=== PATIENT | male | born 1995 | race Caucasian/White ===

== ENCOUNTER 2024-08-19 17:08 | Inpatient (IN) | payer BC ==
[~2024-08-19] VITALS: Ht 185.4 cm; Wt 79.4 kg
[2024-08-19 17:59] LABS: RAPID GROUP A STREP negative (NEGATIVE)
[2024-08-19 18:09] LABS: COVID19 (SARS ANTIGEN RAPID) PRESUMPTIVE NEGATIVE (NEGATIVE); INFLUENZA TYPE A Negative For Type A (NEGATIVE); INFLUENZA TYPE B Negative For Type B (NEGATIVE)
[2024-08-19 18:13] LABS: HEMATOCRIT 45.1 % (42-54); MEAN CORPUSCULAR HGB CONC 34.6 g/dL (32.0-36.0); RED BLOOD CELL COUNT(AUTO) 5.57 MIL/uL (4.50-6.20); RED CELL DISTRIBUTION WIDTH 12.1 % (11.0-15.5); WHITE BLOOD COUNT (AUTO) 14.5 K/uL (4.8-10.8)
--- NOTE | 2024-08-19 18:26 | NUR ---
LAC-2.5, ERMD MADE AWARE NO FURTHER ORDERS
[2024-08-19 18:38] LABS: CREATININE 1.7 mg/dL (0.5-1.3); POTASSIUM 3.9 mmol/L (3.5-5.1)
[2024-08-19] MEDS: acetaMINOPHEN 500 MG TABLET PO ONE (18:42)
[2024-08-19 18:55] LABS: ABG BASE EXCESS 1.1 mmol/L (-2.0-3.0); ABG HCO3 23.6 mmol/L (21.0-28.0); ABG OXYGEN SATURATION 92.3 % (94.0-98.0); ABG PCO2 32 mmHg (35-48); ABG PH 7.488 (7.350-7.450); CARBON MONOXIDE 0.6 % (0.5-1.5); DEVICE COMMENT RR; HHb 7.6; PO2, ARTERIAL BG 57.4 mmHg (83.0-108.0); VENT MODE, BG RA (ROOM AIR)
[2024-08-19] MEDS: 0.9%NACL 1000ML 2,382 ML IV ONE (18:55)
[2024-08-19] MEDS: cefTRIAXone 1G VIAL ONE (18:55)
[2024-08-19] MEDS: cefTRIAXone 1G VIAL IVPB ONE (18:55)
[2024-08-19 19:42] VITALS: TEMP 101
[2024-08-19 19:59] VITALS: PULSE 85; RESP 20
[2024-08-19] MEDS: IpraTROPium/alBUTERol SULFATE 3 ML SOLUTION IH ONE (20:04)
[2024-08-19] MEDS: AZITHROMYCIN 500MG+NS 250ML 250 ML IV ONE (20:05)
[2024-08-19] MEDS: Solu-medROL 125MG VIAL IVP ONE (20:05)
--- NOTE | 2024-08-19 20:59 | EKG ---
[facility] Test Date: 2024-08-19 Test Time: 18:51:19 Pat Name: MACKENZIE BARBOSA Department: ED Room: 424 Gender: M Per Diem Physical Therapist: [id number] : 1995 Requested By: FARZAD HERRERA Order Number: [id number] Reading MD: George De Leon Measurements Intervals [place] Rate: 98 P: 51 RI: 131 QRS: 54 QRSD: 95 T: 11 QT: 323 QTc: 413 Interpretive Statements Sinus rhythm No previous ECG available for comparison Electronically Signed On 08-21-2024 12:14:22 INFUSION PHARMACIST by George De Leon Please click the below link to view image of tracing.
--- NOTE | 2024-08-19 21:02 | HMCIMG ---
CHEST 1VW CLINICAL HISTORY: sob COMPARISON: None TECHNIQUE: Single view of the chest was obtained. FINDINGS: There is mild bilateral patchy infiltrates. The cardiac size and mediastinum are unremarkable. The bony structures are within normal limits. IMPRESSION: Bilateral patchy infiltrates.
--- NOTE | 2024-08-19 21:11 | HP ---
History of Present Illness Reason for Visit: sob History of Present Illness Mr. Watkins is a 29-year-old male that was seen and examined today on 08/19/2024. Patient is a good historian and personal health. Patient's Roxanna Watkins is at bedside. Patient reports that he came to the emergency department with a chief complaint of shortness of breath. Onset was today at 8:00 a.m.. Location is to lungs. Duration is constant. Character is described as, " difficulty catching my breath. "Symptoms were not alleviated with laying in bed all day. Symptoms are aggravated with physical activity. Patient reports associated chest pain. Today in the emergency department patient arrived with a temperature of 101.7, heart rate 109, lactic acid elevated, and leukocytosis meeting clinical sepsis criteria. Labs showed WBCs 14.5, creatinine 1.7, lactic acid 2.5, ABG showed PO2 57.4, influenza screen was negative, COVID screen was negative, strep screen was negative, chest x-ray is pending radiology report however my initial impression is there was bilateral infiltrates. Emergency room physician recommended patient be admitted with a diagnosis of acute hypoxemic respiratory failure. Past Medical History ADDITIONAL PAST MEDICAL HISTORY: [Asthma] SOCIAL HISTORY: [Negative for smoking, alcohol use, drug use. Patient lives with his Roxanna Watkins. Patient is typically independent of all his ADLs. Patient denies difficulty pain is bills. Patient has good access to health care through his insurance. Patient is employed full-time as a cowboy.] SURGICAL HISTORY: [Endoscopy, right elbow surgery] Review of Systems General: No Fever, No Chills, No Night Sweats, No Fatigue, No Malaise, No Appetite, No Other HEENT: No Head Aches, No Visual Changes, No Eye Pain, No Ear Pain, No Dysphasia, No Sinus Congestion, No Post Nasal Drip, No Sore Throat, No Other Pulmonary: Dyspnea; No Cough, No Pleuritic Chest Pain, No Other Cardiovascular: No: Chest Pain, Palpitations, Orthopnea, Paroxysmal Noc. Dyspnea, Edema, Lt Headedness, Other Gastrointestinal: No: Nausea, Vomiting, Abdominal Pain, Diarrhea, Constipation, Melena, Hematochezia, Other Genitourinary: No Dysuria, No Frequency, No Incontinence, No Hematuria, No Retention, No Other Musculoskeletal: No: other, neck pain, shoulder pain, arm pain, back pain, hand pain, leg pain, foot pain Skin: No Urticaria, No Rash, No Other Neurological: No: Weakness, Numbness, Incoordination, Change in speech, Confusion, Seizures, Other Allergies: Coded Allergies: No Known Drug Allergies (Unverified Allergy, Unknown, 08/19/24) Exam Vital Signs Vital Signs Date Time Temp Pulse Resp B/P (MAP) Pulse Ox O2 Delivery O2 Flow Rate FiO2 08/19/24 19:59 85 20 08/19/24 19:32 100.9 122/62 95 Nasal Cannula* 3 32 General Appearance: Alert, Oriented X3, Cooperative, moderate distress HEENT: Atraumatic, PERRLA, EOMI, Mucous membr. moist/pink Respiratory: Other (Bilateral rhonchi) Cardiovascular: Normal S1, Normal S2, Other (Tachycardia) Abdominal: Normal bowel sounds, Soft, No tenderness Extremities: No edema Skin: No significant lesion Neuro: Normal speech, Strength at 5/5 X4 ext, Sensation intact, Cranial nerves 3-12 NL Psych/Mental Status: Mental status NL, Mood NL, Thoughts/Content NL Assessment/Plan ASSESSMENT: [ Acute hypoxemic respiratory failure, POA Sepsis, POA Leukocytosis, POA Acute kidney injury, POA Hyperlactatemia, POA Asthma] PLAN: [ Admit patient to medical floor as inpatient status. Place patient on telemetry monitoring. Start BiPAP 10/5, rate 16, 50% FiO2 Keep patient NPO while on BiPAP Advance diet once patient is no longer short of breath. Solu-Medrol 125 mg IV times 1. Continue Solu-Medrol at 40 mg IV every 8 hours. DuoNebs every 6 hours. Fluid resuscitation with 0.9% NS at 30 mL/kilos times 1. Check blood culture, follow up with the results. Reviewed patient's lactic acid, which was elevated. Recheck lactic acid in a.m.. Check procalcitonin, follow up with the results. Empiric antibiotic therapy with Zosyn. Check respiratory culture, follow up with the results. Calculate FENA Check urine sodium, creatinine, osmolality Avoid nephrotoxic agents when possible Renally dose all medications when possible Consider consulting Nephrology service if any worsening renal function or evidence of ATN. Monitor patient's labs. Weight patient daily. Monitor intake and output. GI prophylaxis, famotidine 20 mg IV once daily. DVT prophylaxis, Lovenox 40 mg subcutaneously once daily. ADVANCED CARE PLANNING 1. Which of the following were discussed? Hospice Care - Yes Therapeutic options - Yes Advance Directives - Yes- patient states he does not have any advance directives in place at this time, however his can make decisions for him if he becomes unable. Other discussions - patient wishes to remain a full code at this time 2. Discussed with who? Patient 3. Voluntary nature of this service was explained to the patient? Yes 4. Amount of time spent - ___ 16 minutes ____ 5. Reviewed by Physician? (if this service was performed by NPP) Yes This document was generated in part using voice recognition software, occasional wrong word or sound alike substitutions may have occurred due to the inherent limitations of voice recognition software. Read the chart carefully and recognize using context, where the substitutions have occurred. Although every effort was made to edit the content, supervisor die casting and typing errors may occur ATTESTATION BY PHYSICIAN I have seen and examined the patient. I reviewed the documentation, medical decision making, and treatment plan as noted by the mid-level provider above. I agree with the findings and plan of care. JENNIFER WHITNEY [facility] Aug 19, 2024 21:11
[2024-08-19] MEDS ORDERED: hydrALAZine 20MG/ML VIAL IV PRN (21:30)
[2024-08-19] MEDS ORDERED: acetaMINOPHEN 650 MG SUPPOSITORY RC PRN (21:30)
[2024-08-19] MEDS ORDERED: morPHINE 4 MG SYG IVP PRN (21:30)
[2024-08-19] MEDS ORDERED: ondanSETRON 4MG INJ IV PRN (21:30)
[2024-08-19 21:42] LABS: APPEARANCE,URINE CLEAR (CLEAR); BILIRUBIN,URINE NEGATIVE (NEGATIVE); COLOR,URINE LIGHT-YELLOW (YELLOW); GLUCOSE, URINE (UA) NEGATIVE (NEGATIVE); KETONES,URINE NEGATIVE (NEGATIVE); LEUKOCYTE ESTERASE ,URINE NEGATIVE Leu/uL (NEGATIVE); NITRATE,URINE NEGATIVE (NEGATIVE); OCCULT BLOOD,URINE NEGATIVE (NEGATIVE); PH,URINE 5.5 (5.0-8.0); PROTEIN,URINE 30 mg/dL (NEGATIVE); UROBILINOGEN,URINE 0.2 mg/dL (0.2-1.0)
[2024-08-19 21:45] LABS: CREATININE,URINE RANDOM 210.94 mg/dL (30-135)
[2024-08-19 21:51] LABS: ADD UA MICROSCOPIC YES
[2024-08-19 21:53] LABS: MUCUS,URINE RARE LPF (None Seen); RBC,URINE 0-1 /HPF (0-1); WBC,URINE 0-1 /HPF (0-1)
[2024-08-19 22:20] VITALS: PULSE 82; RESP 32; O2SAT 98
[2024-08-19] MEDS: ZOSYN 3.375GM +NS 50ML IV SCH (23:28)
[2024-08-19] MEDS: LACTATED RINGERS 1000ML 1,000 ML IV SCH (23:28)
[2024-08-19] MEDS: IpraTROPium/alBUTERol SULFATE 3 ML SOLUTION IH SCH (23:30)
--- NOTE | 2024-08-19 23:43 | ERN ---
ED Note History of Present Illness Stated Complaint: ACUTE HYPOXEMIC RESPIRATORY FAILURE, SEPSIS, LEUKO Chief Complaint: Generalized Body Aches Time Seen by MD: 18:08 Time Seen by Midlevel: 18:08 Dictation: The patient is a 29-year-old male with a history of asthma who presents to the emergency department with complaints fever, shortness of breath, fatigue, generalized body aches, productive cough with yellow phlegm onset two days ago. Allergies: Coded Allergies: No Known Drug Allergies (Unverified Allergy, Unknown, 08/19/24) Past Medical History Past Medical History: Asthma, GERD Surgical History: Tonsillectomy Surgical History Other: RT ARM, EGD Review of System Dictation Constitutional: Negative for ,chills, and weight loss positive for fever, body aches Eyes: Negative for injury, pain,redness, and discharge ENT: Negative for injury,pain or swelling Cardiovascular: Negative for chest pain, palpitations, and edema Respiratory: Positive for shortness of breath, wheezing, cough, Abdomen/GI: Negative for abdominal pain, nausea, vomiting, diarrhea, and constipation Back: Negative for injury and pain : Negative for injury, bleeding and discharge MS/Extremity: Negative for injury and deformity Skin: Negative for rash, and discoloration Neuro: Negative for headache numbness, tingling, and seizure positive for weakness Psych: Negative for suicide ideation, homicidal ideation, and hallucinations Initial Vital Sign VS Vital Signs Date Time Temp Pulse Resp B/P (MAP) Pulse Ox O2 Delivery O2 Flow Rate FiO2 08/19/24 17:46 101.7 109 20 182/72 93 Room Air* 0 21 Physical Exam Dictation Vital Signs reviewed General Appearance: Alert, oriented x 3, mild distress, well developed, carissa shed. Head and Face: non-traumatic. Eyes: PERRL, pink conjunctivas, eyelid no trauma, anterior chamber with arcus senilis. Ears: Pinnas intact and no signs of trauma or erythema ear canals clear and no discharge TM no erythema Nose: No discharge, no bleeding. Oropharynx: Mouth normal, tongue pink. pharynx clear,no erythema, tonsils no exudates, no abscesses noted, mucous membrane moist Neck: Supple, non-tender, no thyromegaly, no masses, no JVD, no bruits Breast:Deferred Chest:No tenderness, no crepitus, no paradoxical movement, no retractions Lungs:Clear, well-ventilated, symmetric, no rales, + wheezing, no rhonchi, no stridor, good breath sounds bilaterally Heart: Regular rate, regular rhythm, no murmur, no gallops Vascular: no peripheral edema, Abdomen: Soft, positive bowel sounds, nondistended, no guarding, nontender, no rebound, no masses no hepatomegaly, no splenomegaly, no Chávez's sign, no hernias. Rectal: Deferred Genital: Deferred Neurological: Normal speech, motor function intact, sensory function intact Musculoskeletal: Neck nontender, full range of motion, back nontender, full range of motion, Extremities: nontender, full range of motion Skin: Color pink, dry, no turgor, no rash, no lacerations, no abrasions, no contusions. Lymphatic: Deferred Results (Laboratory/Radiology) Laboratory/Radiology Laboratory Tests Test 08/19/24 17:40 08/19/24 18:07 08/19/24 18:53 08/19/24 21:24 Influenza Type A Antigen Negative For Type A Influenza Type B Antigen Negative For Type B SARS-CoV-2 Antigen (Rapid) PRESUMPTIVE NEGATIVE Group A Streptococcus Rapid negative (NEGATIVE) White Blood Count 14.5 K/uL (4.8-10.8) H Red Blood Count 5.57 MIL/uL (4.50-6.20) Hemoglobin 15.6 g/dL (14.0-18.0) Hematocrit 45.1 % (42-54) Mean Corpuscular Volume 81.0 fL (79-99) Mean Corpuscular Hemoglobin 28.0 pg (27.0-33.0) Mean Corpuscular Hemoglobin Concent 34.6 g/dL (32.0-36.0) Red Cell Distribution Width 12.1 % (11.0-15.5) Platelet Count 195 K/uL (130-400) Mean Platelet Volume 10.4 fL (7.5-10.5) Nucleated Red Blood Cells 0.0 % (0.0-0.19) Sodium Level 137 mmol/L (136-145) Potassium Level 3.9 mmol/L (3.5-5.1) Chloride Level 97 mmol/L (101-111) L Carbon Dioxide Level 27 mmol/L (21-32) Blood Urea Nitrogen 18 mg/dL (7-18) Creatinine 1.7 mg/dL (0.5-1.3) H Glomerular Filtration Rate Calc 55 mL/min (>90) Random Glucose 124 mg/dL (70-105) H Lactic Acid Level 2.5 mmol/L (0.8-2.5) Total Calcium 9.1 mg/dL (8.5-10.1) Total Creatine Kinase 114 U/L (21-232) Troponin I High Sensitivity 9 ng/L (4-75) B-Type Natriuretic Peptide 7 pg/mL (0-100) Procalcitonin 0.36 ng/mL (0.05-0.5) Blood Gas Specimen Type Arterial Arterial Blood pH 7.488 (7.350-7.450) Arterial Blood Partial Pressure CO2 32 mmHg (35-48) L Arterial Blood Partial Pressure O2 57.4 mmHg (83.0-108.0) L Arterial Blood HCO3 23.6 mmol/L (21.0-28.0) Arterial Blood Oxygen Saturation 92.3 % (94.0-98.0) L Arterial Blood Base Excess 1.1 mmol/L (-2.0-3.0) Hemoglobin (Blood Gas) 15.3 g/dL (13.5-17.5) Sodium (Blood Gas) 133 MMOL/L (136-145) L Bedside Potassium (Blood Gas) 3.8 MMOL/L (3.4-4.5) Bedside Chloride (Blood Gas) 97 MMOL/L (98-107) L Bedside Glucose (Blood Gas) 119 MG/DL (65-95) H Bedside Ionized Calcium (Blood Gas) 1.11 MMOL/L (1.15-1.33) L Bedside Lactic Acid (Blood Gas) 1.86 MMOL/L (0.36-0.75) H Blood Gas Temperature 37.0 CELSIUS (35.5-37.0) Blood Gas Vent Mode RA (ROOM AIR) FiO2 21.0 % Blood Gas Specimen Comment RR Urine Color LIGHT-YELLOW (YELLOW) Urine Appearance CLEAR (CLEAR) Urine pH 5.5 (5.0-8.0) Urine Specific [place] 1.025 (1.001-1.031) Urine Protein 30 mg/dL (NEGATIVE) H Urine Glucose (UA) NEGATIVE mg/dL (NEGATIVE) Urine Ketones NEGATIVE mg/dL (NEGATIVE) Urine Occult Blood NEGATIVE (NEGATIVE) Urine Nitrate NEGATIVE (NEGATIVE) Urine Bilirubin NEGATIVE mg/dL (NEGATIVE) Urine Urobilinogen 0.2 mg/dL (0.2-1.0) Urine Leukocyte Esterase NEGATIVE Sveta/uL Urine RBC 0-1 /HPF (0-1) Urine WBC 0-1 /HPF (0-1) Urine Bacteria None /HPF (None Seen) Urine Random Creatinine 210.94 mg/dL (30-135) H Urine Random Sodium 65 mmol/l (40-220) Test 08/19/24 21:40 Lactic Acid Level 2.0 mmol/L (0.8-2.5) SERVICE 1840 REASON: sob ORDERING PHYSICIAN: FARZAD HERRERA PROCEDURE: CXR1VW - CHEST 1VW CHEST 1VW CLINICAL HISTORY: sob COMPARISON: None TECHNIQUE: Single view of the chest was obtained. FINDINGS: There is mild bilateral patchy infiltrates. The cardiac size and mediastinum are unremarkable. The bony structures are within normal limits. IMPRESSION: Bilateral patchy infiltrates. Labs Reviewed?: Yes EKG: (+) rhythm EKG Comment: EKG 08/19/2024 1851 ventricular rate 98, regular rate and rhythm, normal sinus rhythm, no STEMI ED Course ED Course Orders Procedure Category Date Status Time Covid19 (Sars Antigen LAB 08/19/24 Complete Rapid) 17:34 Influenza Type A & B, LAB 08/19/24 Complete Rapid 17:34 Rapid (Group A Strep) LAB 08/19/24 Complete 17:34 Cbc Without LAB 08/19/24 Complete Differential 18:05 Basic Metabolic Panel LAB 08/19/24 Complete 18:05 Lactic Acid LAB 08/19/24 Complete 18:05 Acetaminophen 500mg PHA 08/19/24 Complete Tab (Tylenol 500mg T 19:00 12 Lead Ekg Tracing- EKG 08/19/24 Complete Technical 18:40 Blood Cult CLAUDIA 08/19/24 In Process 18:40 Chest 1vw RAD 08/19/24 Resulted 18:40 Azithromycin 500mg+Ns PHA 08/19/24 Complete 250ml (Azithromyci 19:00 0.9%Nacl 1000ml (Ns PHA 08/19/24 Complete 1000ml) 19:00 Creatine Kinase, Total LAB 08/19/24 Complete 18:40 Troponin I High LAB 08/19/24 Complete Sensitivity 18:40 B-Type Natriuretic LAB 08/19/24 Complete Peptide 18:40 Procalcitonin LAB 08/19/24 Complete 18:40 Ceftriaxone 1g Vial PHA 08/19/24 Complete (Rocephine 1g Inj) 19:00 Arterial Blood Gas RT 08/19/24 Transmitted 18:42 Ceftriaxone 1g Vial PHA 08/19/24 Complete (Rocephine 1g Inj) 18:46 Arterial Blood Gas LAB 08/19/24 Complete Arterial + 18:53 Methylprednisolone PHA 08/19/24 Complete Succ 125mg (Solu-Medr 19:30 Ipratropium/Albuterol PHA 08/19/24 Complete Neb (Duoneb) 19:30 Admit Orders ADM 08/19/24 Transmitted 20:57 Edm Admit Bridge Order ADM 08/19/24 Transmitted 20:57 Lactated Ringers PHA 08/19/24 In Process 1000ml (Lactated 21:30 Zosyn 3.375gm+Ns 50ml PHA 08/19/24 In Process (Zosyn 3.375gm+Ns 21:30 Famotidine 20mg Vial PHA 08/20/24 In Process (Pepcid 20mg Vial) 09:00 Ipratropium/Albuterol PHA 08/20/24 In Process Neb (Duoneb) 00:00 Enoxaparin Sodium 40 PHA 08/20/24 In Process Mg/0.4 Ml (Lovenox) 09:00 Hydralazine 20mg Inj PHA 08/19/24 In Process (Apresoline 20mg In 21:30 Morphine 4mg Syg PHA 08/19/24 In Process (Morphine 4mg Syg) 21:30 Ondansetron 4mg Inj PHA 08/19/24 In Process (Zofran 4mg Inj) 21:30 Acetaminophen 650mg PHA 08/19/24 In Process Supp (Tylenol 650mg 21:30 Methylprednisolone PHA 08/20/24 In Process Succ 40mg (Solu-Medro 04:00 Bipap Settings RT 08/19/24 Transmitted 21:05 Respiratory Cult CLAUDIA 08/19/24 Logged W/Gram Stain 21:05 Urine Creatinine LAB 08/19/24 Complete Random 21:05 Urinalysis Profile LAB 08/19/24 Complete 21:05 Urine Sodium,Random LAB 08/19/24 Complete 21:05 Osmolality Urine LAB 08/19/24 In Process 21:05 Keep Patient Npo CPOE 08/19/24 Transmitted 21:05 Admit Orders ADM 08/19/24 Transmitted 21:05 Activity: Ad Vibha CPOE 08/19/24 Transmitted 21:05 Condition: CPOE 08/19/24 Transmitted 21:05 Nurse To Enter Home CPOE 08/19/24 Transmitted Medication 21:05 Oxygen By Nc/Pulse Ox CPOE 08/19/24 Transmitted 21:05 Telemetry Monitoring CPOE 08/19/24 Transmitted 21:05 Vital Signs(Adult CPOE 08/19/24 Transmitted Hospitalist) 21:05 Lactic Acid (Removed) LAB 08/19/24 Complete 21:27 Basic Metabolic Panel LAB 08/20/24 Verified 04:00 Magnesium LAB 08/20/24 Verified 04:00 Phosphorus LAB 08/20/24 Verified 04:00 Lactic Acid LAB 08/20/24 Verified 04:00 Cbc With Differential LAB 08/20/24 Verified 04:00 Current Medications Medications (Trade) Dose Ordered Sig/Anna Route PRN Reason Start Time Stop Time Status Last Admin Dose Admin Acetaminophen (TYLenol 500MG TAB) 1,000 mg ONCE ONCE PO 08/19/24 19:00 08/19/24 19:01 DC 08/19/24 18:42 Albuterol (DUOneb) 1 UDVIAL ONCE ONCE IH 08/19/24 19:30 08/19/24 19:31 DC 08/19/24 20:04 Azithromycin 250 ml @ 125 mls/hr ONCE ONCE IV 08/19/24 19:00 08/19/24 20:59 DC 08/19/24 20:05 Ceftriaxone Sodium (ROCEphine 1G INJ) 1 gm ONCE ONCE IVPB 08/19/24 19:00 08/19/24 19:01 DC 08/19/24 18:55 Ceftriaxone Sodium (ROCEphine 1G INJ) 1 gm STK-MED ONCE .ROUTE 08/19/24 18:46 08/19/24 18:46 DC Methylprednisolone Sodium Succinate (Solu-medROL 125MG) 125 mg ONCE ONCE IVP 08/19/24 19:30 08/19/24 19:31 DC 08/19/24 20:05 Sodium Chloride 2,382 ml @ 794 mls/hr ONCE ONCE IV 08/19/24 19:00 08/19/24 21:59 DC 08/19/24 18:55 Vital Signs Date Time Temp Pulse Resp B/P (MAP) Pulse Ox O2 Delivery O2 Flow Rate FiO2 08/19/24 22:36 85 20 124/60 98 Bi-PAP+ 50 08/19/24 22:20 82 32 50 08/19/24 19:59 85 20 08/19/24 19:32 100.9 94 18 122/62 95 Nasal Cannula* 3 32 08/19/24 18:56 104 24 133/72 94 Room Air* 0 21 08/19/24 18:42 101.7 08/19/24 17:46 101.7 109 22 182/72 93 0 08/19/24 17:46 101.7 109 20 182/72 93 Room Air* 0 21 Medical Decision Making MDM The patient is a 29-year-old male with a history of asthma who presents to the emergency department with complaints fever, shortness of breath, fatigue, generalized body aches, productive cough with yellow phlegm onset two days ago. CBC showed mild leukocytosis, no anemia, chemistry showed GFR of 55, no electrolyte imbalance, lactic acid of 2.3, serology negative. Patient Saturday 92-93% on room air. ABG showed some hypoxemia. Patient placed on O2. chest x- ray with infiltrate. Patient will be admitted further management Differential diagnosis: Pneumonia, pneumothorax, sepsis, electrolyte imbalance, upper respiratory infection Comorbidities: Asthma Tests considered and not ordered secondary to shared decision making include: none Previous outside records reviewed: none Risk of complication and/or morbidity or mortality of patient management: The patient meets criteria for admission. Need for emergency major/minor surgery: No There are no social concerns with this patient. I independently interpreted the tests I ordered (labs, urinalysis, etc.). I discussed the case with the hospitalist for admission. Glynn CRESPO who accepts ad mission. I discussed the case with the following specialists: none. Historian: pateint. I independently interpreted imaging studies and EKGs that I ordered (US, CT, XR, EKG, etc.). External chart review: none. Medical management and examination interpretation discussions were had by me with other qualified healthcare professionals as indicated for the patient's care. DX & DISP Disposition: Inpatient Decision to Admit Date: Aug 19, 2024 Decision to Admit Time: 20:57 Departure Impression: Primary Impression: Pneumonia Additional Impressions: Respiratory distress, Hypoxemia, Acute kidney injury, Leukocytosis, Elevated lactic acid level Condition: Stable Referrals: RAUL REY MD (PCP) I have reviewed the case, and I agree with, Diagnosis and Plan FARZAD HERRERA Aug 19, 2024 23:43
[2024-08-19 23:55] VITALS: PULSE 92; RESP 23
[2024-08-20] VITALS (15 sets, daily range): BP systolic 109–128; BP diastolic 55–72; PULSE 57–90; RESP 18–24; TEMP 97.3–98.7; O2SAT 94–98
[2024-08-20] MEDS: Solu-medROL 40MG VIAL IVP SCH (05:35)
[2024-08-20 07:34] LABS: BASOPHILS # (AUTO) 0.02 K/uL (0.00-0.20); BASOPHILS % (AUTO) 0.1 % (0.0-5.0); HEMATOCRIT 39.6 % (42-54); LYMPHOCYTES # (AUTO) 1.7 K/uL (1.0-4.8); LYMPHOCYTES % (AUTO) 11.9 % (21.0-51.0); MEAN CORPUSCULAR HEMOGLOBIN 28.3 pg (27.0-33.0); MEAN CORPUSCULAR HGB CONC 34.3 g/dL (32.0-36.0); MEAN CORPUSCULAR VOLUME 82.5 fL (79-99); MONOCYTES # (AUTO) 0.5 K/uL (0.1-1.0); MONOCYTES % (AUTO) 3.4 % (3.0-13.0); NEUTROPHILS # (AUTO) 12.3 K/uL (1.8-7.7); NEUTROPHILS % (AUTO) 83.9 % (40.0-77.0); PLATELET COUNT (AUTO) 174 K/uL (130-400); RED CELL DISTRIBUTION WIDTH 12.2 % (11.0-15.5); WHITE BLOOD COUNT (AUTO) 14.7 K/uL (4.8-10.8)
[2024-08-20 07:56] LABS: CREATININE 1.2 mg/dL (0.5-1.3); MAGNESIUM 1.9 mg/dL (1.80-2.40); PHOSPHORUS 2.6 mg/dL (2.5-4.9); POTASSIUM 3.8 mmol/L (3.5-5.1)
[2024-08-20] MEDS: FAMOTIDINE 20MG VIAL IV SCH (09:37)
[2024-08-20] MEDS: ENOXAPARIN SODIUM 40 MG/0.4 ML SYRINGE SQ SCH (09:38)
--- NOTE | 2024-08-20 10:32 | NUR ---
DCP Pt awake, alert, oriented X3 lives with spouse. Pt has a wheelchair from past broken extremity and was going to [employer]. Anticipates discharge is for home. Addendum: 08/20/24 at 1042 by ERIKA WALLACE RN CM Amended: Links added.
--- NOTE | 2024-08-20 12:45 | NUR ---
PATIENT INTO ROOM 424. PATIENT A&O X4. PATIENT DENIES PAIN AT THIS TIME. PATIENT ON NC @ 3L. PATIENT CONNECTED TO FLUIDS AND TELE MONITOR. BED AT LOWEST POSITION AND LOCKED, CALL LIGHT WITHIN REACH.
--- NOTE | 2024-08-20 13:29 | PN ---
[facility] PROGRESS NOTE Date of Service: Aug 20, 2024 Time of Service: 13:27 SUBJECTIVE: 08/20/24 Patient is seen and examined, awake, comfortably bed, admits cough productive off yellow phlegm. BP 114/65, afebrile, saturating 94% 2 L via nasal cannula, CBC with a hemoglobin 13.6, hematocrit 39.6, white blood cell count of 14.7, patient on Zosyn IV pharmacy to dose. Chest x-ray showing bilateral patchy infiltrates. Serology test negative for influenza A and B, SARS antigen and group A strep. We will order CT chest without contrast. We will request Pulmonary consultation. Discussed with the patient, all questions answered. REVIEW OF SYSTEMS CONSTITUTIONAL: Denies fevers, chills, or night sweats. No unintentional weight loss reported. NEUROLOGICAL: Denies headache, amaurosis fugax, motor weakness, sensory deficit, vertigo/spinning sensation, gait abnormalities, or tremors. ENT: No hearing loss, otalgia, otorrhea, rhinitis, rhinorrhea, hoarseness, or sore throat. CARDIOVASCULAR: Denies any exertional angina, dyspnea on exertion, orthopnea, paroxysmal nocturnal dyspnea, palpitations, life-threatening arrhythmias, claudication. PULMONARY: Denies any shortness of breath, cough, phlegm/sputum, hemoptysis, pleuritic chest pain. SLEEP: Denies morning headaches, daytime somnolence or napping. Denies difficulty falling asleep, staying asleep, waking from sleep. Denies knowledge of snoring. GASTROINTESTINAL: Denies any type of dysphagia to either liquids or solids. Denies nausea, vomiting, pyrosis, early satiety, abdominal pain, diarrhea, constipation, or changes in stool consistency or caliber. Denies coffee-ground emesis, hematemesis, hematochezia, or melanotic stools. GENITOURINARY: Denies frequency, urgency, nocturia, hematuria or incontinence (Storage/Irritative symptoms.) Low urinary stream, straining to void, urinary intermittency or hesitancy, splitting of the voiding stream, terminal dribbling. ENDOCRINOLOGIC: Denies polyuria, polydipsia, polyphagia or heat/cold intolerances. HEMATOLOGIC: Denies thrombophilia/previous clots, or coagulopathy/bleeding disorders. ONCOLOGIC: Denies personal history of malignancy. DERMATOLOGIC: Denies rashes or pruritus. PSYCHIATRIC: Denies any suicidal or homicidal ideation. Denies hallucinations. PHYSICAL EXAM GENERAL APPEARANCE: The patient is awake, alert, and oriented, in no acute cardiopulmonary distress. NEUROLOGICAL: Cranial nerves II-XII grossly intact. Motor is 5/5 in bilateral upper and lower extremities proximal to distal. No sensory deficits. HEENT: Face is symmetric. Pupils are equal and reactive. Extraocular movements are intact. NECK: Supple. No JVD. No thyromegaly. No submental, submandibular, pre- /postauricular, occipital or supraclavicular lymphadenopathy. CHEST: Normal chest expansion. No Telemetry. LUNGS: Absence of any rales, rhonchi or any wheezing. CARDIOVASCULAR: Regular. S1 and S2 normal. No appreciable rubs, murmurs or gallops. ABDOMEN: Soft, nontender, and nondistended. There is no rebound, voluntary guarding, or rigidity. : Deferred. No Busby. EXTREMITIES: Non-edematous and not cyanotic. No clubbing. Good capillary refill. SKIN: No skin breakdown. Vital Signs (last 8hr) Date Time Temp Pulse Resp B/P (MAP) Pulse Ox O2 Delivery O2 Flow Rate FiO2 08/20/24 12:51 97.3 58 20 114/65 94 Nasal Cannula 2.0 24 08/20/24 12:00 98.8 78 20 128/66 96 Nasal Cannula 3.0 50 08/20/24 11:40 61 24 08/20/24 11:33 61 24 N/Cannula Low lpm 3.0 08/20/24 11:32 61 24 08/20/24 08:00 98.2 70 20 117/72 98 Nasal Cannula 3.0 50 08/20/24 07:36 Room Air* 0 21 08/20/24 07:13 63 24 N/Cannula Low lpm 3.0 08/20/24 07:13 63 24 08/20/24 05:45 97.7 67 20 117/68 96 Bi-PAP+ 50 LABS: Laboratory: Test 08/20/24 11:10 08/20/24 07:29 08/19/24 21:24 08/19/24 18:53 Range/Units Lactic Acid Level 3.3 H 0.8-2.5 mmol/L White Blood Count 14.7 H 4.8-10.8 K/uL Red Blood Count 4.80 4.50-6.20 MIL/uL Hemoglobin 13.6 L 14.0-18.0 g/dL Hematocrit 39.6 L 42-54 % Mean Corpuscular Volume 82.5 79-99 fL Mean Corpuscular Hemoglobin 28.3 27.0-33.0 pg Mean Corpuscular Hemoglobin Concent 34.3 32.0-36.0 g/dL Red Cell Distribution Width 12.2 11.0-15.5 % Platelet Count 174 130-400 K/uL Mean Platelet Volume 10.7 H 7.5-10.5 fL Immature Granulocyte % (Auto) 0.7 0-1 % Neutrophils (%) (Auto) 83.9 H 40.0-77.0 % Lymphocytes (%) (Auto) 11.9 L 21.0-51.0 % Monocytes (%) (Auto) 3.4 3.0-13.0 % Eosinophils (%) (Auto) 0.0 0.0-8.0 % Basophils (%) (Auto) 0.1 0.0-5.0 % Neutrophils # (Auto) 12.3 H 1.8-7.7 K/uL Lymphocytes # (Auto) 1.7 1.0-4.8 K/uL Monocytes # (Auto) 0.5 0.1-1.0 K/uL Eosinophils # (Auto) 0.00 0.00-0.70 K/uL Basophils # (Auto) 0.02 0.00-0.20 K/uL Absolute Immature Granulocyte (auto 0.10 0-1 K/uL Nucleated Red Blood Cells 0.0 0.0-0.19 % Sodium Level 141 136-145 mmol/L Potassium Level 3.8 3.5-5.1 mmol/L Chloride Level 105 101-111 mmol/L Carbon Dioxide Level 27 21-32 mmol/L Blood Urea Nitrogen 16 7-18 mg/dL Creatinine 1.2 0.5-1.3 mg/dL Glomerular Filtration Rate Calc 83 >90 mL/min Random Glucose 174 H 70-105 mg/dL Total Calcium 8.4 L 8.5-10.1 mg/dL Phosphorus Level 2.6 2.5-4.9 mg/dL Magnesium Level 1.90 1.80-2.40 mg/dL Urine Color LIGHT-YELLOW YELLOW Urine Appearance CLEAR CLEAR Urine pH 5.5 5.0-8.0 Urine Specific [place] 1.025 1.001-1.031 Urine Protein 30 H NEGATIVE mg/dL Urine Glucose (UA) NEGATIVE NEGATIVE mg/dL Urine Ketones NEGATIVE NEGATIVE mg/dL Urine Occult Blood NEGATIVE NEGATIVE Urine Nitrate NEGATIVE NEGATIVE Urine Bilirubin NEGATIVE NEGATIVE mg/dL Urine Urobilinogen 0.2 0.2-1.0 mg/dL Urine Leukocyte Esterase NEGATIVE NEGATIVE Sveta/uL Urine RBC 0-1 0-1 /HPF Urine WBC 0-1 0-1 /HPF Urine Bacteria None None Seen /HPF Urine Osmolality 798 50-1200 mOsm/kg Urine Random Creatinine 210.94 H 30-135 mg/dL Urine Random Sodium 65 40-220 mmol/l Blood Gas Specimen Type Arterial Arterial Blood pH 7.488 H 7.350-7.450 Arterial Blood Partial Pressure CO2 32 L 35-48 mmHg Arterial Blood Partial Pressure O2 57.4 L 83.0-108.0 mmHg Arterial Blood HCO3 23.6 21.0-28.0 mmol/L Arterial Blood Oxygen Saturation 92.3 L 94.0-98.0 % Arterial Blood Base Excess 1.1 -2.0-3.0 mmol/L Hemoglobin (Blood Gas) 15.3 13.5-17.5 g/dL Sodium (Blood Gas) 133 L 136-145 MMOL/L Bedside Potassium (Blood Gas) 3.8 3.4-4.5 MMOL/L Bedside Chloride (Blood Gas) 97 L 98-107 MMOL/L Bedside Glucose (Blood Gas) 119 H 65-95 MG/DL Bedside Ionized Calcium (Blood Gas) 1.11 L 1.15-1.33 MMOL/L Bedside Lactic Acid (Blood Gas) 1.86 H 0.36-0.75 MMOL/L Blood Gas Temperature 37.0 35.5-37.0 CELSIUS Blood Gas Vent Mode RA ROOM AIR FiO2 21.0 % Blood Gas Specimen Comment RR Test 08/19/24 18:07 08/19/24 17:40 Range/Units Total Creatine Kinase 114 21-232 U/L Troponin I High Sensitivity 9 4-75 ng/L B-Type Natriuretic Peptide 7 0-100 pg/mL Procalcitonin 0.36 0.05-0.5 ng/mL Influenza Type A Antigen Negative For Type A NEGATIVE Influenza Type B Antigen Negative For Type B NEGATIVE SARS-CoV-2 Antigen (Rapid) PRESUMPTIVE NEGATIVE NEGATIVE Group A Streptococcus Rapid negative NEGATIVE Current Medications Medications (Trade) Dose Ordered Sig/Anna Route PRN Reason Start Time Stop Time Status Last Admin Dose Admin Acetaminophen (TYLenol 650MG SUPPOSITORY) 650 mg Q6H PRN RC MILD PAIN (1-3) 08/19/24 21:30 09/18/24 21:29 Albuterol (DUOneb) 1 UDVIAL [id number] IH 08/20/24 00:00 09/19/24 00:00 08/20/24 11:30 1 UDVIAL Enoxaparin Sodium (Lovenox) 40 mg DAILY SQ 08/20/24 09:00 09/19/24 08:59 08/20/24 09:38 40 MG Famotidine (Pepcid 20mg Vial) 20 mg DAILY IV 08/20/24 09:00 09/19/24 08:59 08/20/24 09:37 20 MG Hydralazine HCl (APRESOLine 20MG INJ) 10 mg Q6H PRN IV For:SBP above 160;DBP above 90 08/19/24 21:30 09/18/24 21:29 Lactated Ringer's 1,000 ml @ 75 mls/hr [id number] IV 08/19/24 21:30 09/18/24 21:29 08/19/24 23:28 75 MLS/HR Methylprednisolone Sodium Succinate (Solu-medROL 40MG) 40 mg Q8H IVP 08/20/24 04:00 09/19/24 03:59 08/20/24 05:35 40 MG Morphine Sulfate (morPHINE 4MG SYG) 4 mg Q4H PRN IVP SEVERE PAIN (7-10) 08/19/24 21:30 08/26/24 21:29 Ondansetron HCl (zoFRAN 4MG INJ) 4 mg Q6H PRN IV NAUSEA/VOMITING 08/19/24 21:30 09/18/24 21:29 Piperacillin Sod/ Tazobactam Sod (Zosyn 3.375gm+NS 50ml) 3.375 gm Q8H IV 08/19/24 21:30 08/29/24 21:29 08/20/24 05:36 3.375 GM DIAGNOSTICS / RADIOLOGY: [ ] ASSESSMENT: Acute hypoxemic respiratory failure, POA Sepsis, POA Leukocytosis, POA Acute kidney injury, POA Hyperlactatemia, POA Asthma PLAN: Admit patient to medical floor as inpatient status. Place patient on telemetry monitoring. Continue BiPAP 10/5, rate 16, 50% FiO2 Keep patient NPO while on BiPAP Advance diet once patient is no longer short of breath. Continue Solu-Medrol at 40 mg IV every 8 hours. DuoNebs every 6 hours. Fluid resuscitation with 0.9% NS at 30 mL/kilos times 1. Check blood culture, follow up with the results. Reviewed patient's lactic acid, which was elevated. Recheck lactic acid in a.m.. Check procalcitonin, follow up with the results. Empiric antibiotic therapy with Zosyn. Check respiratory culture, follow up with the results. Calculate FENA Check urine sodium, creatinine, osmolality Avoid nephrotoxic agents when possible Renally dose all medications when possible Consider consulting Nephrology service if any worsening renal function or evidence of ATN. We will request Pulmonary consultation Monitor patient's labs. Weight patient daily. Monitor intake and output. GI prophylaxis, famotidine 20 mg IV once daily. DVT prophylaxis, Lovenox 40 mg subcutaneously once daily. BELL SMITH MD Aug 20, 2024 13:29
--- NOTE | 2024-08-20 13:40 | NUR ---
[facility] CONSULT SPOKE WITH BIBIANA WEAVER, WHO WORKS [employer] DR QUIJANO ABOUT NEW CONSULT FOR PNEUMONIA, SATED HE IS AWARE OF CONSULT. PLAN OF CARE ON GOING.
--- NOTE | 2024-08-20 18:22 | HMCIMG ---
CT CHEST W/O CONTRAST REASON: pneumonia COMPARISON: None. TECHNIQUE: Multiple sequential axial images of the chest were obtained from the thoracic inlet through the upper pole of the kidneys without intravenous contrast administration. FINDINGS: There is acute focal infiltrate in the base of the right upper lobe, consistent with pneumonia. There is patchy infiltrate in the base of the left upper lobe, less pronounced. There is atelectasis in the left lung base. Lungs are otherwise clear. Heart size is normal. There is no vascular congestion or pleural effusion. Hilar and mediastinal structures appear unremarkable. There is severe hepatic steatosis. Upper abdominal structures appear otherwise unremarkable. IMPRESSION: Multifocal pneumonia, in the base of the right upper lobe and less pronounced infiltrate in the base of the left upper lobe. 2. Otherwise unremarkable CT chest. 3. Severe hepatic steatosis. CT was performed with one or more following dose reduction techniques: automated exposure control, adjustment of the mA and kv according to patient's size, or use of a iterative reconstruction technique.
[2024-08-20 19:30] LABS: AMPHET/METH SCREEN,URINE NEGATIVE (NEGATIVE); BARBITURATE SCREEN, URINE NEGATIVE (NEGATIVE); BENZODIAZEPINES SCREEN,URINE NEGATIVE (NEGATIVE); CANNABINOID SCREEN,URINE NEGATIVE (NEGATIVE); COCAINE SCREEN,URINE NEGATIVE (NEGATIVE); OPIATE SCREEN,URINE NEGATIVE (NEGATIVE); PHENCYCLIDINE SCREEN,URINE NEGATIVE (NEGATIVE)
--- NOTE | 2024-08-20 23:16 | CONS ---
[facility] CONSULTATION NOTE Date Patient Seen: Aug 20, 2024 Time of Visit: 23:12 Supervising Physician: Dr. Mane Meza Reason for Consultation: Pneumonia PROBLEM LIST: Acute hypoxemic respiratory failure, POA Bilateral pneumonia Sepsis, POA Leukocytosis, POA Acute kidney injury, POA Hyperlactatemia, POA Asthma HPI: Patient is a 29-year-old who was admitted for sepsis criteria and acute hypoxemic respiratory failure. Patient was found to have bilateral patchy i nfiltrates consistent with pneumonia. Pulmonology was consulted for this. At the time of evaluation the patient is on 3 L nasal cannula, he appears comfortable and in no acute distress. There are mild wheezes on auscultation, patient denies any acute distress at this time. Patient was on Zosyn q.8 hours, as well as albuterol q.6 hours PRN. He is also on 40 mg methylprednisolone q.8 hours. Current recommendations are to continue with the current treatment plan, we will reassess ABGs in the morning and evaluate the patient to determine if further interventions are necessary. Plan Continue antibiotic Continue steroids Continue nebulizers Morning ABGs Continue supplemental O2 Continue DVT prophylaxis PAST MEDICAL HX: see above PAST SURGICAL HX: noncontributory SOCIAL HISTORY: No tobacco, ETOH, or illicit drug use Coded Allergies: No Known Drug Allergies (Unverified Allergy, Unknown, 08/19/24) REVIEW OF SYSTEMS: 12 point ROS reviewed with patient. Pertinent positives mentioned above. Otherwise negative. PHYSICAL EXAM: GENERAL: alert, weak, awake oriented x 3 HEENT: EOMI, Sclera non icteric, moist mucosa NECK: Supple, no JVD, trachea midline LUNGS: Clear breath sounds bilaterally. No wheezes HEART: Regular rate and rhythm. Normal S1 and S2, without murmurs ABD: Abdomen soft, nontender. Bowel sounds present EXT: No clubbing cyanosis or edema NEURO: Alert and oriented to person, follows commands Vital Signs (last 8hr) Date Time Temp Pulse Resp B/P (MAP) Pulse Ox O2 Delivery O2 Flow Rate FiO2 08/20/24 22:56 60 20 08/20/24 22:54 60 20 08/20/24 20:00 Nasal Cannula* 2 28 08/20/24 20:00 98.1 77 20 120/59 97 Nasal Cannula 2.0 08/20/24 18:35 72 22 N/Cannula Low lpm 3.0 08/20/24 18:34 72 22 08/20/24 18:31 72 22 08/20/24 16:00 97.9 57 18 109/55 96 Room Air 21 LABS: Hematology Labs: Test 08/20/24 07:29 Range/Units White Blood Count 14.7 H 4.8-10.8 K/uL Red Blood Count 4.80 4.50-6.20 MIL/uL Hemoglobin 13.6 L 14.0-18.0 g/dL Hematocrit 39.6 L 42-54 % Mean Corpuscular Volume 82.5 79-99 fL Mean Corpuscular Hemoglobin 28.3 27.0-33.0 pg Mean Corpuscular Hemoglobin Concent 34.3 32.0-36.0 g/dL Red Cell Distribution Width 12.2 11.0-15.5 % Platelet Count 174 130-400 K/uL Mean Platelet Volume 10.7 H 7.5-10.5 fL Immature Granulocyte % (Auto) 0.7 0-1 % Neutrophils (%) (Auto) 83.9 H 40.0-77.0 % Lymphocytes (%) (Auto) 11.9 L 21.0-51.0 % Monocytes (%) (Auto) 3.4 3.0-13.0 % Eosinophils (%) (Auto) 0.0 0.0-8.0 % Basophils (%) (Auto) 0.1 0.0-5.0 % Neutrophils # (Auto) 12.3 H 1.8-7.7 K/uL Lymphocytes # (Auto) 1.7 1.0-4.8 K/uL Monocytes # (Auto) 0.5 0.1-1.0 K/uL Eosinophils # (Auto) 0.00 0.00-0.70 K/uL Basophils # (Auto) 0.02 0.00-0.20 K/uL Absolute Immature Granulocyte (auto 0.10 0-1 K/uL Nucleated Red Blood Cells 0.0 0.0-0.19 % Chemistry Labs: Test 08/20/24 11:10 08/20/24 07:29 08/19/24 18:07 Range/Units Lactic Acid Level 3.3 H 0.8-2.5 mmol/L Sodium Level 141 136-145 mmol/L Potassium Level 3.8 3.5-5.1 mmol/L Chloride Level 105 101-111 mmol/L Carbon Dioxide Level 27 21-32 mmol/L Blood Urea Nitrogen 16 7-18 mg/dL Creatinine 1.2 0.5-1.3 mg/dL Glomerular Filtration Rate Calc 83 >90 mL/min Random Glucose 174 H 70-105 mg/dL Total Calcium 8.4 L 8.5-10.1 mg/dL Phosphorus Level 2.6 2.5-4.9 mg/dL Magnesium Level 1.90 1.80-2.40 mg/dL Total Creatine Kinase 114 21-232 U/L Troponin I High Sensitivity 9 4-75 ng/L B-Type Natriuretic Peptide 7 0-100 pg/mL Procalcitonin 0.36 0.05-0.5 ng/mL DIAGNOSTICS / RADIOLOGY RESULTS: [ ] PLAN NEURO: Minimize central acting medications as possible. Maintain fall precautions, adequate lighting during the day PULMONARY: Supplemental 02 as needed. Maintain aspiration precautions at all times CARDIOVASCULAR: Follow hemodynamics. Vital signs per facility protocol GI & NUTRITION: Continue with nutritional support. Continue stool softeners and laxatives as needed. KIDNEYS & ELECTROLYTES: Strict monitoring of intake, output and overall fluid balance. Avoid nephrotoxic medications to the extent possible. Medications to be dosed according to renal function. Monitor electrolytes and replace as needed ENDOCRINE: Maintain blood glucose between 100-180 at all times. Hypoglycemia protocol in place INFECTIOUS DISEASE: Trend temperature, WBC and procalcitonin level Follow cultures, deescalate antibiotics as soon as possible. Panculture if new onset fever ONCOLOGY/HEMATOLOGY/COAGULATION: Monitor for s/s of bleeding Monitor hemoglobin, coagulation studies as needed SKIN: Pressure ulcer prevention per facility protocol Specialty mattress ORTHO/REHAB: Continue PT/OT Prophylaxis: Continue GI and DVT prophylaxis Code Status: Full Resuscitation Disposition: TBD Other: Total patient care time exceeds 35 minutes excluding all procedures. BIBIANA PARK Aug 20, 2024 23:16
[2024-08-21] VITALS (15 sets, daily range): BP systolic 110–124; BP diastolic 43–86; PULSE 42–82; RESP 17–21; TEMP 97.3–98.1; O2SAT 94–98
[2024-08-21 04:41] LABS: ABG BASE EXCESS -1.8 mmol/L (-2.0-3.0); ABG HCO3 22.6 mmol/L (21.0-28.0); ABG PCO2 37 mmHg (35-48); ABG PH 7.402 (7.350-7.450); CARBON MONOXIDE 0.3 % (0.5-1.5); DEVICE COMMENT RA; HHb 12.9; PO2, ARTERIAL BG 49.5 mmHg (83.0-108.0); VENT MODE, BG LR (ROOM AIR)
[2024-08-21 04:49] LABS: MEAN CORPUSCULAR HGB CONC 33.6 g/dL (32.0-36.0); MEAN CORPUSCULAR VOLUME 83.3 fL (79-99); RED BLOOD CELL COUNT(AUTO) 4.32 MIL/uL (4.50-6.20); RED CELL DISTRIBUTION WIDTH 12.5 % (11.0-15.5); WHITE BLOOD COUNT (AUTO) 17.6 K/uL (4.8-10.8)
[2024-08-21 05:09] LABS: CREATININE 1.2 mg/dL (0.5-1.3); POTASSIUM 3.9 mmol/L (3.5-5.1)
[2024-08-21 05:10] LABS: ALBUMIN 2.9 g/dL (3.5-5.0); BILIRUBIN,TOTAL 0.2 mg/dL (0.2-1.0); MAGNESIUM 2.1 mg/dL (1.80-2.40); TOTAL PROTEIN, SERUM 6.1 g/dL (6.0-8.3)
[2024-08-21] MEDS ORDERED: FLUT1BLS9 PO (08:12)
[2024-08-21] MEDS ORDERED: MONT-39 PO (08:12)
--- NOTE | 2024-08-21 15:09 | PN ---
[facility] PROGRESS NOTE Date Patient Seen: Aug 21, 2024 Time of Visit: 15:09 Supervising Physician: Dr. Mane Meza PROBLEM LIST: Acute hypoxemic respiratory failure, POA Bilateral pneumonia Sepsis, POA Leukocytosis, POA Acute kidney injury, POA Hyperlactatemia, POA Asthma INTERVAL HISTORY: Patient was evaluated at bedside, currently wearing BiPAP. Blood pH on ABGs this morning was normal, slightly hypoxic. Patient stated that he wanted to take a nap and did not want his saturations to drop, advised the patient that he would be okay on nasal cannula, BiPAP was canceled. Patient and family had several questions regarding the patient's prognosis, I have advised the patient that he appears to have bilateral pneumonia, previous screening for flu and strep and COVID has been negative. Patient continues on Zosyn at this time, appears to be responding well. He continues on Solu-Medrol which is likely the what is responsible for his increased leukocytosis. We will continue to follow the patient closely, recommended to continue medical treatment at this time Plan Continue antibiotic therapy Continue supplemental O2 Continue Solu-Medrol IV, decreased tomorrow to b.i.d. Continue with nebulizer treatment REVIEW OF SYSTEMS: 12 point ROS reviewed with patient. Pertinent positives mentioned above. Otherwise negative. PHYSICAL EXAM: GENERAL: alert, weak, awake oriented x 3 HEENT: EOMI, Sclera non icteric, moist mucosa NECK: Supple, no JVD, trachea midline LUNGS: Clear breath sounds bilaterally. No wheezes HEART: Regular rate and rhythm. Normal S1 and S2, without murmurs ABD: Abdomen soft, nontender. Bowel sounds present EXT: No clubbing cyanosis or edema NEURO: Alert and oriented to person, follows commands Vital Signs (last 8hr) Date Time Temp Pulse Resp B/P (MAP) Pulse Ox O2 Delivery O2 Flow Rate FiO2 08/21/24 12:00 97.5 56 17 122/51 96 Nasal Cannula 3.0 08/21/24 11:50 62 18 30 08/21/24 11:34 62 18 08/21/24 08:00 97.3 66 18 117/58 94 Nasal Cannula 3.0 LABS: Hematology Labs: Test 08/21/24 04:31 08/20/24 07:29 Range/Units White Blood Count 17.6 H 4.8-10.8 K/uL Red Blood Count 4.32 L 4.50-6.20 MIL/uL Hemoglobin 12.1 L 14.0-18.0 g/dL Hematocrit 36.0 L 42-54 % Mean Corpuscular Volume 83.3 79-99 fL Mean Corpuscular Hemoglobin 28.0 27.0-33.0 pg Mean Corpuscular Hemoglobin Concent 33.6 32.0-36.0 g/dL Red Cell Distribution Width 12.5 11.0-15.5 % Platelet Count 179 130-400 K/uL Mean Platelet Volume 10.7 H 7.5-10.5 fL Nucleated Red Blood Cells 0.0 0.0-0.19 % Immature Granulocyte % (Auto) 0.7 0-1 % Neutrophils (%) (Auto) 83.9 H 40.0-77.0 % Lymphocytes (%) (Auto) 11.9 L 21.0-51.0 % Monocytes (%) (Auto) 3.4 3.0-13.0 % Eosinophils (%) (Auto) 0.0 0.0-8.0 % Basophils (%) (Auto) 0.1 0.0-5.0 % Neutrophils # (Auto) 12.3 H 1.8-7.7 K/uL Lymphocytes # (Auto) 1.7 1.0-4.8 K/uL Monocytes # (Auto) 0.5 0.1-1.0 K/uL Eosinophils # (Auto) 0.00 0.00-0.70 K/uL Basophils # (Auto) 0.02 0.00-0.20 K/uL Absolute Immature Granulocyte (auto 0.10 0-1 K/uL Chemistry Labs: Test 08/21/24 04:31 08/20/24 11:10 08/20/24 07:29 08/19/24 18:07 Range/Units Sodium Level 143 136-145 mmol/L Potassium Level 3.9 3.5-5.1 mmol/L Chloride Level 108 101-111 mmol/L Carbon Dioxide Level 26 21-32 mmol/L Blood Urea Nitrogen 21 H 7-18 mg/dL Creatinine 1.2 0.5-1.3 mg/dL Glomerular Filtration Rate Calc 83 >90 mL/min Random Glucose 163 H 70-105 mg/dL Total Calcium 8.6 8.5-10.1 mg/dL Magnesium Level 2.10 1.80-2.40 mg/dL Total Bilirubin 0.2 0.2-1.0 mg/dL Aspartate Amino Transf (AST/SGOT) 22 10-37 U/L Alanine Aminotransferase (ALT/SGPT) 39 12-78 U/L Alkaline Phosphatase 64 50-136 U/L Total Protein 6.1 6.0-8.3 g/dL Albumin 2.9 L 3.5-5.0 g/dL Lactic Acid Level 3.3 H 0.8-2.5 mmol/L Phosphorus Level 2.6 2.5-4.9 mg/dL Total Creatine Kinase 114 21-232 U/L Troponin I High Sensitivity 9 4-75 ng/L B-Type Natriuretic Peptide 7 0-100 pg/mL Procalcitonin 0.36 0.05-0.5 ng/mL DIAGNOSTICS / RADIOLOGY RESULTS: [ ] PLAN NEURO: Minimize central acting medications as possible. Maintain fall precautions, adequate lighting during the day PULMONARY: Supplemental 02 as needed. Maintain aspiration precautions at all times CARDIOVASCULAR: Follow hemodynamics. Vital signs per facility protocol GI & NUTRITION: Continue with nutritional support. Continue stool softeners and laxatives as needed. KIDNEYS & ELECTROLYTES: Strict monitoring of intake, output and overall fluid balance. Avoid nephrotoxic medications to the extent possible. Medications to be dosed according to renal function. Monitor electrolytes and replace as needed ENDOCRINE: Maintain blood glucose between 100-180 at all times. Hypoglycemia protocol in place INFECTIOUS DISEASE: Trend temperature, WBC and procalcitonin level Follow cultures, deescalate antibiotics as soon as possible. Panculture if new onset fever ONCOLOGY/HEMATOLOGY/COAGULATION: Monitor for s/s of bleeding Monitor hemoglobin, coagulation studies as needed SKIN: Pressure ulcer prevention per facility protocol Specialty mattress ORTHO/REHAB: Continue PT/OT Prophylaxis: Continue GI and DVT prophylaxis Code Status: Full Resuscitation Disposition: TBD Other: Total patient care time exceeds 35 minutes excluding all procedures. BIBIANA PARK Aug 21, 2024 15:09
--- NOTE | 2024-08-21 15:11 | PN ---
[facility] PROGRESS NOTE Date of Service: Aug 21, 2024 Time of Service: 15:04 SUBJECTIVE: 08/20/24 Patient is seen and examined, awake, comfortably bed, admits cough productive off yellow phlegm. BP 114/65, afebrile, saturating 94% 2 L via nasal cannula, CBC with a hemoglobin 13.6, hematocrit 39.6, white blood cell count of 14.7, patient on Zosyn IV pharmacy to dose. Chest x-ray showing bilateral patchy infiltrates. Serology test negative for influenza A and B, SARS antigen and group A strep. We will order CT chest without contrast. We will request Pulmonary consultation. Discussed with the patient, all questions answered. 08/21/24 patient is seen and examined, comfortable, no acute events overnight, admits to less cough compared to time of admission, no chest pain, BP 122/51, afebrile, saturating 96% on 2 L nasal cannula. CBC showing WBC of 17.6, hemoglobin 12.1, follow 36.0, platelet count of 179. CMP is unremarkable. Toxicology screen negative. ABG today pH seven point, pCO2 30, PO2 49.5. CT chest without contrast showing multifocal pneumoniae in the base of the right upper lobe and less pronounced if within in the base of the left upper lobe, severe hepatic steatosis. Patient getting IV antibiotics during my visit, pulmonary input noted and appreciated, continue bronchodilators, continue IV steroids, continue antibiotics. REVIEW OF SYSTEMS CONSTITUTIONAL: Denies fevers, chills, or night sweats. No unintentional weight loss reported. NEUROLOGICAL: Denies headache, amaurosis fugax, motor weakness, sensory deficit, vertigo/spinning sensation, gait abnormalities, or tremors. ENT: No hearing loss, otalgia, otorrhea, rhinitis, rhinorrhea, hoarseness, or sore throat. CARDIOVASCULAR: Denies any exertional angina, dyspnea on exertion, orthopnea, paroxysmal nocturnal dyspnea, palpitations, life-threatening arrhythmias, claudication. PULMONARY: Denies any shortness of breath, cough, phlegm/sputum, hemoptysis, pleuritic chest pain. SLEEP: Denies morning headaches, daytime somnolence or napping. Denies difficulty falling asleep, staying asleep, waking from sleep. Denies knowledge of snoring. GASTROINTESTINAL: Denies any type of dysphagia to either liquids or solids. Denies nausea, vomiting, pyrosis, early satiety, abdominal pain, diarrhea, constipation, or changes in stool consistency or caliber. Denies coffee-ground emesis, hematemesis, hematochezia, or melanotic stools. GENITOURINARY: Denies frequency, urgency, nocturia, hematuria or incontinence (Storage/Irritative symptoms.) Low urinary stream, straining to void, urinary intermittency or hesitancy, splitting of the voiding stream, terminal dribbling. ENDOCRINOLOGIC: Denies polyuria, polydipsia, polyphagia or heat/cold intolerances. HEMATOLOGIC: Denies thrombophilia/previous clots, or coagulopathy/bleeding disorders. ONCOLOGIC: Denies personal history of malignancy. DERMATOLOGIC: Denies rashes or pruritus. PSYCHIATRIC: Denies any suicidal or homicidal ideation. Denies hallucinations. PHYSICAL EXAM GENERAL APPEARANCE: The patient is awake, alert, and oriented, in no acute cardiopulmonary distress. NEUROLOGICAL: Cranial nerves II-XII grossly intact. Motor is 5/5 in bilateral upper and lower extremities proximal to distal. No sensory deficits. HEENT: Face is symmetric. Pupils are equal and reactive. Extraocular movements are intact. NECK: Supple. No JVD. No thyromegaly. No submental, submandibular, pre-/post auricular, occipital or supraclavicular lymphadenopathy. CHEST: Normal chest expansion. No Telemetry. LUNGS: Absence of any rales, rhonchi or any wheezing. CARDIOVASCULAR: Regular. S1 and S2 normal. No appreciable rubs, murmurs or gallops. ABDOMEN: Soft, nontender, and nondistended. There is no rebound, voluntary guarding, or rigidity. : Deferred. No Busby. EXTREMITIES: Non-edematous and not cyanotic. No clubbing. Good capillary refill. SKIN: No skin breakdown. Vital Signs (last 8hr) Date Time Temp Pulse Resp B/P (MAP) Pulse Ox O2 Delivery O2 Flow Rate FiO2 08/21/24 12:00 97.5 56 17 122/51 96 Nasal Cannula 3.0 08/21/24 11:50 62 18 30 08/21/24 11:34 62 18 08/21/24 08:00 97.3 66 18 117/58 94 Nasal Cannula 3.0 LABS: Laboratory: Test 08/21/24 04:39 08/21/24 04:31 08/20/24 19:00 08/20/24 11:10 Range/Units Blood Gas Specimen Type Arterial Arterial Blood pH 7.402 7.350-7.450 Arterial Blood Partial Pressure CO2 37 35-48 mmHg Arterial Blood Partial Pressure O2 49.5 *L 83.0-108.0 mmHg Arterial Blood HCO3 22.6 21.0-28.0 mmol/L Arterial Blood Oxygen Saturation 87.0 L 94.0-98.0 % Arterial Blood Base Excess -1.8 -2.0-3.0 mmol/L Hemoglobin (Blood Gas) 13.0 L 13.5-17.5 g/dL Sodium (Blood Gas) 139 136-145 MMOL/L Bedside Potassium (Blood Gas) 3.8 3.4-4.5 MMOL/L Bedside Chloride (Blood Gas) 106 98-107 MMOL/L Bedside Glucose (Blood Gas) 156 H 65-95 MG/DL Bedside Ionized Calcium (Blood Gas) 1.16 1.15-1.33 MMOL/L Bedside Lactic Acid (Blood Gas) 1.78 H 0.36-0.75 MMOL/L Blood Gas Temperature 37.0 35.5-37.0 CELSIUS Blood Gas Vent Mode LR ROOM AIR FiO2 28.0 % Blood Gas Specimen Comment RA White Blood Count 17.6 H 4.8-10.8 K/uL Red Blood Count 4.32 L 4.50-6.20 MIL/uL Hemoglobin 12.1 L 14.0-18.0 g/dL Hematocrit 36.0 L 42-54 % Mean Corpuscular Volume 83.3 79-99 fL Mean Corpuscular Hemoglobin 28.0 27.0-33.0 pg Mean Corpuscular Hemoglobin Concent 33.6 32.0-36.0 g/dL Red Cell Distribution Width 12.5 11.0-15.5 % Platelet Count 179 130-400 K/uL Mean Platelet Volume 10.7 H 7.5-10.5 fL Nucleated Red Blood Cells 0.0 0.0-0.19 % Sodium Level 143 136-145 mmol/L Potassium Level 3.9 3.5-5.1 mmol/L Chloride Level 108 101-111 mmol/L Carbon Dioxide Level 26 21-32 mmol/L Blood Urea Nitrogen 21 H 7-18 mg/dL Creatinine 1.2 0.5-1.3 mg/dL Glomerular Filtration Rate Calc 83 >90 mL/min Random Glucose 163 H 70-105 mg/dL Total Calcium 8.6 8.5-10.1 mg/dL Magnesium Level 2.10 1.80-2.40 mg/dL Total Bilirubin 0.2 0.2-1.0 mg/dL Aspartate Amino Transf (AST/SGOT) 22 10-37 U/L Alanine Aminotransferase (ALT/SGPT) 39 12-78 U/L Alkaline Phosphatase 64 50-136 U/L Total Protein 6.1 6.0-8.3 g/dL Albumin 2.9 L 3.5-5.0 g/dL Urine Opiates Screen NEGATIVE NEGATIVE Urine Barbiturates Screen NEGATIVE NEGATIVE Urine Phencyclidine Screen NEGATIVE NEGATIVE Urine Amphetamines Screen NEGATIVE NEGATIVE Urine Benzodiazepines Screen NEGATIVE NEGATIVE Urine Cocaine Screen NEGATIVE NEGATIVE Urine Marijuana (THC) Screen NEGATIVE NEGATIVE Lactic Acid Level 3.3 H 0.8-2.5 mmol/L Test 08/20/24 07:29 08/19/24 21:24 08/19/24 18:07 08/19/24 17:40 Range/Units Immature Granulocyte % (Auto) 0.7 0-1 % Neutrophils (%) (Auto) 83.9 H 40.0-77.0 % Lymphocytes (%) (Auto) 11.9 L 21.0-51.0 % Monocytes (%) (Auto) 3.4 3.0-13.0 % Eosinophils (%) (Auto) 0.0 0.0-8.0 % Basophils (%) (Auto) 0.1 0.0-5.0 % Neutrophils # (Auto) 12.3 H 1.8-7.7 K/uL Lymphocytes # (Auto) 1.7 1.0-4.8 K/uL Monocytes # (Auto) 0.5 0.1-1.0 K/uL Eosinophils # (Auto) 0.00 0.00-0.70 K/uL Basophils # (Auto) 0.02 0.00-0.20 K/uL Absolute Immature Granulocyte (auto 0.10 0-1 K/uL Phosphorus Level 2.6 2.5-4.9 mg/dL Urine Color LIGHT-YELLOW YELLOW Urine Appearance CLEAR CLEAR Urine pH 5.5 5.0-8.0 Urine Specific [place] 1.025 1.001-1.031 Urine Protein 30 H NEGATIVE mg/dL Urine Glucose (UA) NEGATIVE NEGATIVE mg/dL Urine Ketones NEGATIVE NEGATIVE mg/dL Urine Occult Blood NEGATIVE NEGATIVE Urine Nitrate NEGATIVE NEGATIVE Urine Bilirubin NEGATIVE NEGATIVE mg/dL Urine Urobilinogen 0.2 0.2-1.0 mg/dL Urine Leukocyte Esterase NEGATIVE NEGATIVE Sveta/uL Urine RBC 0-1 0-1 /HPF Urine WBC 0-1 0-1 /HPF Urine Bacteria None None Seen /HPF Urine Osmolality 798 50-1200 mOsm/kg Urine Random Creatinine 210.94 H 30-135 mg/dL Urine Random Sodium 65 40-220 mmol/l Total Creatine Kinase 114 21-232 U/L Troponin I High Sensitivity 9 4-75 ng/L B-Type Natriuretic Peptide 7 0-100 pg/mL Procalcitonin 0.36 0.05-0.5 ng/mL Influenza Type A Antigen Negative For Type A NEGATIVE Influenza Type B Antigen Negative For Type B NEGATIVE SARS-CoV-2 Antigen (Rapid) PRESUMPTIVE NEGATIVE NEGATIVE Group A Streptococcus Rapid negative NEGATIVE Current Medications Medications (Trade) Dose Ordered Sig/Anna Route PRN Reason Start Time Stop Time Status Last Admin Dose Admin Acetaminophen (TYLenol 650MG SUPPOSITORY) 650 mg Q6H PRN RC MILD PAIN (1-3) 08/19/24 21:30 09/18/24 21:29 Albuterol (DUOneb) 1 UDVIAL [id number] IH 08/20/24 00:00 09/19/24 00:00 08/21/24 11:33 1 UDVIAL Enoxaparin Sodium (Lovenox) 40 mg DAILY SQ 08/20/24 09:00 09/19/24 08:59 08/21/24 08:15 40 MG Famotidine (Pepcid 20mg Vial) 20 mg DAILY IV 08/20/24 09:00 09/19/24 08:59 08/21/24 08:15 20 MG Hydralazine HCl (APRESOLine 20MG INJ) 10 mg Q6H PRN IV For:SBP above 160;DBP above 90 08/19/24 21:30 09/18/24 21:29 Lactated Ringer's 1,000 ml @ 75 mls/hr [id number] IV 08/19/24 21:30 09/18/24 21:29 08/21/24 12:27 75 MLS/HR Methylprednisolone Sodium Succinate (Solu-medROL 40MG) 40 mg Q8H IVP 08/20/24 04:00 09/19/24 03:59 08/21/24 12:31 40 MG Morphine Sulfate (morPHINE 4MG SYG) 4 mg Q4H PRN IVP SEVERE PAIN (7-10) 08/19/24 21:30 08/26/24 21:29 Ondansetron HCl (zoFRAN 4MG INJ) 4 mg Q6H PRN IV NAUSEA/VOMITING 08/19/24 21:30 09/18/24 21:29 Piperacillin Sod/ Tazobactam Sod (Zosyn 3.375gm+NS 50ml) 3.375 gm Q8H IV 08/19/24 21:30 08/29/24 21:29 08/21/24 12:27 3.375 GM DIAGNOSTICS / RADIOLOGY: [ ] CT CHEST W/O CONTRAST REASON: pneumonia COMPARISON: None. TECHNIQUE: Multiple sequential axial images of the chest were obtained from the thoracic inlet through the upper pole of the kidneys without intravenous contrast administration. FINDINGS: There is acute focal infiltrate in the base of the right upper lobe, consistent with pneumonia. There is patchy infiltrate in the base of the left upper lobe, less pronounced. There is atelectasis in the left lung base. Lungs are otherwise clear. Heart size is normal. There is no vascular congestion or pleural effusion. Hilar and mediastinal structures appear unremarkable. There is severe hepatic steatosis. Upper abdominal structures appear otherwise unremarkable. IMPRESSION: Multifocal pneumonia, in the base of the right upper lobe and less pronounced infiltrate in the base of the left upper lobe. 2. Otherwise unremarkable CT chest. 3. Severe hepatic steatosis. CT was performed with one or more following dose reduction techniques: automated exposure control, adjustment of the mA and kv according to patient's size, or use of a iterative reconstruction technique. ASSESSMENT: Acute hypoxemic respiratory failure, POA Sepsis, POA Leukocytosis, POA Acute kidney injury, POA Hyperlactatemia, POA Asthma PLAN: Admit patient to medical floor as inpatient status. Place patient on telemetry monitoring. Continue supplemental oxygen as needed to keep O2 sat greater than 92% Pulmonary consultation requested, follow input recommendation Continue bronchodilators as well as Solu-Medrol IV Continue to follow results of septic workup including Streptococcus pneumoniae antigen, Legionella antigen and mycoplasma antigen Follow HIV test Infectious disease consultation requested, follow input and recommendation Fluid resuscitation with 0.9% NS at 30 mL/kilos times 1. Check blood culture, follow up with the results. Reviewed patient's lactic acid, which was elevated. Recheck lactic acid in a.m.. Check procalcitonin, follow up with the results. Continue broad-spectrum IV antibiotics Replace electrolytes IV per protocol Follow a.m. labs GI and DVT prophylaxis Disposition: Pending improvement in clinical condition. All questions answered, agreed and understood the information provided BELL SMITH MD Aug 21, 2024 15:11
--- NOTE | 2024-08-21 16:14 | NUR ---
ROUNDS DR. SMITH ROUNDED AT BEDSIDE. VERBAL ORDER FOR INFECTION DISEASE CONSULT, REPEAT FLU/COVID/STREP EXAMS AND PHYSICAL THERAPY EVALUATION. ADVISED PER DR. PRECIADO, HE WONT BE AVAILABLE UNTIL 08/23/2024. PER DR. SMITH, NO CONSULT PLACED, MONITOR OVER THE WEEKEND. ALL OTHER ORDERS PLACED AND CARRIED OUT. WILL CONTINUE TO MONITOR.
[2024-08-21 16:21] LABS: HIV 1&2 ANTIBODY Non-Reactive (Negative); HIV-1 p24 Antigen Non-Reactive (Negative)
[2024-08-21 17:31] LABS: COVID19 (SARS ANTIGEN RAPID) PRESUMPTIVE NEGATIVE (NEGATIVE)
[2024-08-21 18:31] LABS: INFLUENZA TYPE A Negative For Type A (NEGATIVE); INFLUENZA TYPE B Negative For Type B (NEGATIVE)
[2024-08-21 20:12] LABS: RAPID GROUP A STREP negative (NEGATIVE)
[2024-08-21] MEDS: acetaMINOPHEN 325 MG TAB ONE (20:42)
[2024-08-21] MEDS ORDERED: OMEP20CA12 PO (22:15)
[2024-08-22] VITALS (15 sets, daily range): BP systolic 118–142; BP diastolic 51–72; PULSE 48–97; RESP 18–21; TEMP 97.5–98.5; O2SAT 92–98
[2024-08-22] MEDS ORDERED: CALCIUM CARB 500MG CHEW TAB PO PRN (00:30)
--- NOTE | 2024-08-22 12:38 | PN ---
[facility] PROGRESS NOTE Date of Service: Aug 22, 2024 Time of Service: 12:37 SUBJECTIVE: 08/20/24 Patient is seen and examined, awake, comfortably bed, admits cough productive off yellow phlegm. BP 114/65, afebrile, saturating 94% 2 L via nasal cannula, CBC with a hemoglobin 13.6, hematocrit 39.6, white blood cell count of 14.7, patient on Zosyn IV pharmacy to dose. Chest x-ray showing bilateral patchy infiltrates. Serology test negative for influenza A and B, SARS antigen and group A strep. We will order CT chest without contrast. We will request Pulmonary consultation. Discussed with the patient, all questions answered. 08/21/24 patient is seen and examined, comfortable, no acute events overnight, admits to less cough compared to time of admission, no chest pain, BP 122/51, afebrile, saturating 96% on 2 L nasal cannula. CBC showing WBC of 17.6, hemoglobin 12.1, follow 36.0, platelet count of 179. CMP is unremarkable. Toxicology screen negative. ABG today pH seven point, pCO2 30, PO2 49.5. CT chest without contrast showing multifocal pneumoniae in the base of the right upper lobe and less pronounced if within in the base of the left upper lobe, severe hepatic steatosis. Patient getting IV antibiotics during my visit, pulmonary input noted and appreciated, continue bronchodilators, continue IV steroids, continue antibiotics. 08/22/24 patient is seen and examined, awake, alert and oriented x3, following commands, admits less shortness a breath, less cough, no chest pain. BP 121/51, afebrile, saturating 92-93% 2 L via nasal cannula, WBC today 17.6, hemoglobin 12.1, hematocrit 26.0, CMP is unremarkable. HIV test done yesterday, no nreactive (discussed with the patient), serology test to include influenza type A and B, SARS antigen and group a strep repeated, negative. We will continue the patient on broad-spectrum IV antibiotics. We will continue to follow Pulmonary input and recommendation. Anticipate discharge home in the next 24 hours. REVIEW OF SYSTEMS CONSTITUTIONAL: Denies fevers, chills, or night sweats. No unintentional weight loss reported. NEUROLOGICAL: Denies headache, amaurosis fugax, motor weakness, sensory deficit, vertigo/spinning sensation, gait abnormalities, or tremors. ENT: No hearing loss, otalgia, otorrhea, rhinitis, rhinorrhea, hoarseness, or sore throat. CARDIOVASCULAR: Denies any exertional angina, dyspnea on exertion, orthopnea, paroxysmal nocturnal dyspnea, palpitations, life-threatening arrhythmias, claudication. PULMONARY: Denies any shortness of breath, cough, phlegm/sputum, hemoptysis, pleuritic chest pain. SLEEP: Denies morning headaches, daytime somnolence or napping. Denies difficulty falling asleep, staying asleep, waking from sleep. Denies knowledge of snoring. GASTROINTESTINAL: Denies any type of dysphagia to either liquids or solids. Denies nausea, vomiting, pyrosis, early satiety, abdominal pain, diarrhea, constipation, or changes in stool consistency or caliber. Denies coffee-ground emesis, hematemesis, hematochezia, or melanotic stools. GENITOURINARY: Denies frequency, urgency, nocturia, hematuria or incontinence (Storage/Irritative symptoms.) Low urinary stream, straining to void, urinary intermittency or hesitancy, splitting of the voiding stream, terminal dribbling. ENDOCRINOLOGIC: Denies polyuria, polydipsia, polyphagia or heat/cold intolerances. HEMATOLOGIC: Denies thrombophilia/previous clots, or coagulopathy/bleeding disorders. ONCOLOGIC: Denies personal history of malignancy. DERMATOLOGIC: Denies rashes or pruritus. PSYCHIATRIC: Denies any suicidal or homicidal ideation. Denies hallucinations. PHYSICAL EXAM GENERAL APPEARANCE: The patient is awake, alert, and oriented, in no acute cardiopulmonary distress. NEUROLOGICAL: Cranial nerves II-XII grossly intact. Motor is 5/5 in bilateral upper and lower extremities proximal to distal. No sensory deficits. HEENT: Face is symmetric. Pupils are equal and reactive. Extraocular movements are intact. NECK: Supple. No JVD. No thyromegaly. No submental, submandibular, pre- /postauricular, occipital or supraclavicular lymphadenopathy. CHEST: Normal chest expansion. No Telemetry. LUNGS: Absence of any rales, rhonchi or any wheezing. CARDIOVASCULAR: Regular. S1 and S2 normal. No appreciable rubs, murmurs or gallops. ABDOMEN: Soft, nontender, and nondistended. There is no rebound, voluntary guarding, or rigidity. : Deferred. No Busby. EXTREMITIES: Non-edematous and not cyanotic. No clubbing. Good capillary refill. SKIN: No skin breakdown. Vital Signs (last 8hr) Date Time Temp Pulse Resp B/P (MAP) Pulse Ox O2 Delivery O2 Flow Rate FiO2 08/22/24 11:48 97 18 21 08/22/24 11:40 74 18 08/22/24 11:40 74 18 N/A Room Air 21 08/22/24 08:00 97.5 63 19 121/51 93 Nasal Cannula 2.0 08/22/24 07:50 Nasal Cannula* 3 32 08/22/24 06:59 75 18 08/22/24 06:58 75 18 N/A Room Air 21 08/22/24 04:45 98.1 58 20 118/72 97 Nasal Cannula 2.0 LABS: Laboratory: Test 08/21/24 16:40 08/21/24 15:35 08/21/24 04:39 08/21/24 04:31 Range/Units Influenza Type A Antigen Negative For Type A NEGATIVE Influenza Type B Antigen Negative For Type B NEGATIVE SARS-CoV-2 Antigen (Rapid) PRESUMPTIVE NEGATIVE NEGATIVE Group A Streptococcus Rapid negative NEGATIVE HIV (1&2) Antibody Non-Reactive Negative HIV P24 Antigen, Qualitative Non-Reactive Negative Blood Gas Specimen Type Arterial Arterial Blood pH 7.402 7.350-7.450 Arterial Blood Partial Pressure CO2 37 35-48 mmHg Arterial Blood Partial Pressure O2 49.5 *L 83.0-108.0 mmHg Arterial Blood HCO3 22.6 21.0-28.0 mmol/L Arterial Blood Oxygen Saturation 87.0 L 94.0-98.0 % Arterial Blood Base Excess -1.8 -2.0-3.0 mmol/L Hemoglobin (Blood Gas) 13.0 L 13.5-17.5 g/dL Sodium (Blood Gas) 139 136-145 MMOL/L Bedside Potassium (Blood Gas) 3.8 3.4-4.5 MMOL/L Bedside Chloride (Blood Gas) 106 98-107 MMOL/L Bedside Glucose (Blood Gas) 156 H 65-95 MG/DL Bedside Ionized Calcium (Blood Gas) 1.16 1.15-1.33 MMOL/L Bedside Lactic Acid (Blood Gas) 1.78 H 0.36-0.75 MMOL/L Blood Gas Temperature 37.0 35.5-37.0 CELSIUS Blood Gas Vent Mode LR ROOM AIR FiO2 28.0 % Blood Gas Specimen Comment RA White Blood Count 17.6 H 4.8-10.8 K/uL Red Blood Count 4.32 L 4.50-6.20 MIL/uL Hemoglobin 12.1 L 14.0-18.0 g/dL Hematocrit 36.0 L 42-54 % Mean Corpuscular Volume 83.3 79-99 fL Mean Corpuscular Hemoglobin 28.0 27.0-33.0 pg Mean Corpuscular Hemoglobin Concent 33.6 32.0-36.0 g/dL Red Cell Distribution Width 12.5 11.0-15.5 % Platelet Count 179 130-400 K/uL Mean Platelet Volume 10.7 H 7.5-10.5 fL Nucleated Red Blood Cells 0.0 0.0-0.19 % Sodium Level 143 136-145 mmol/L Potassium Level 3.9 3.5-5.1 mmol/L Chloride Level 108 101-111 mmol/L Carbon Dioxide Level 26 21-32 mmol/L Blood Urea Nitrogen 21 H 7-18 mg/dL Creatinine 1.2 0.5-1.3 mg/dL Glomerular Filtration Rate Calc 83 >90 mL/min Random Glucose 163 H 70-105 mg/dL Total Calcium 8.6 8.5-10.1 mg/dL Magnesium Level 2.10 1.80-2.40 mg/dL Total Bilirubin 0.2 0.2-1.0 mg/dL Aspartate Amino Transf (AST/SGOT) 22 10-37 U/L Alanine Aminotransferase (ALT/SGPT) 39 12-78 U/L Alkaline Phosphatase 64 50-136 U/L Total Protein 6.1 6.0-8.3 g/dL Albumin 2.9 L 3.5-5.0 g/dL Test 08/20/24 19:00 Range/Units Urine Opiates Screen NEGATIVE NEGATIVE Urine Barbiturates Screen NEGATIVE NEGATIVE Urine Phencyclidine Screen NEGATIVE NEGATIVE Urine Amphetamines Screen NEGATIVE NEGATIVE Urine Benzodiazepines Screen NEGATIVE NEGATIVE Urine Cocaine Screen NEGATIVE NEGATIVE Urine Marijuana (THC) Screen NEGATIVE NEGATIVE Current Medications Medications (Trade) Dose Ordered Sig/Anna Route PRN Reason Start Time Stop Time Status Last Admin Dose Admin Acetaminophen (TYLenol 325MG TAB) 650 mg Q4H PRN PO MILD PAIN (1-3) 08/22/24 00:30 09/21/24 00:29 Acetaminophen (TYLenol 650MG SUPPOSITORY) 650 mg Q6H PRN RC MILD PAIN (1-3) 08/19/24 21:30 09/18/24 21:29 Albuterol (DUOneb) 1 UDVIAL [id number] IH 08/20/24 00:00 09/19/24 00:00 08/22/24 11:39 1 UDVIAL Calcium Carbonate (Tums 500 Mg Chew Tab) 500 tab QIDP PRN PO INDIGESTION 08/22/24 00:30 09/21/24 00:29 Enoxaparin Sodium (Lovenox) 40 mg DAILY SQ 08/20/24 09:00 09/19/24 08:59 08/22/24 08:45 40 MG Famotidine (Pepcid 20mg Vial) 20 mg DAILY IV 08/20/24 09:00 09/19/24 08:59 08/22/24 08:46 20 MG Hydralazine HCl (APRESOLine 20MG INJ) 10 mg Q6H PRN IV For:SBP above 160;DBP above 90 08/19/24 21:30 09/18/24 21:29 Lactated Ringer's 1,000 ml @ 75 mls/hr [id number] IV 08/19/24 21:30 09/18/24 21:29 08/21/24 12:27 75 MLS/HR Methylprednisolone Sodium Succinate (Solu-medROL 40MG) 40 mg Q8H IVP 08/20/24 04:00 09/19/24 03:59 08/22/24 03:33 40 MG Morphine Sulfate (morPHINE 4MG SYG) 4 mg Q4H PRN IVP SEVERE PAIN (7-10) 08/19/24 21:30 08/26/24 21:29 Ondansetron HCl (zoFRAN 4MG INJ) 4 mg Q6H PRN IV NAUSEA/VOMITING 08/19/24 21:30 09/18/24 21:29 Piperacillin Sod/ Tazobactam Sod (Zosyn 3.375gm+NS 50ml) 3.375 gm Q8H IV 08/19/24 21:30 08/29/24 21:29 08/22/24 03:33 3.375 GM DIAGNOSTICS / RADIOLOGY: [ ] ASSESSMENT: Acute hypoxemic respiratory failure, POA Sepsis, POA Leukocytosis, POA Acute kidney injury, POA Hyperlactatemia, POA Asthma PLAN: Admit patient to medical floor as inpatient status. Place patient on telemetry monitoring. Continue supplemental oxygen as needed to keep O2 sat greater than 92% Pulmonary consultation requested, follow input recommendation Continue bronchodilators as well as Solu-Medrol IV Continue to follow results of septic workup including Streptococcus pneumoniae antigen, Legionella antigen and mycoplasma antigen Follow HIV test Infectious disease consultation requested, follow input and recommendation Fluid resuscitation with 0.9% NS at 30 mL/kilos times 1. Check blood culture, follow up with the results. Reviewed patient's lactic acid, which was elevated. Recheck lactic acid in a.m.. Check procalcitonin, follow up with the results. Continue broad-spectrum IV antibiotics Replace electrolytes IV per protocol Follow a.m. labs GI and DVT prophylaxis Disposition: Pending improvement in clinical condition. Possible home in the next 24 hours. BELL SMITH MD Aug 22, 2024 12:38
--- NOTE | 2024-08-22 13:54 | HMCIMG ---
CHEST 1VW CLINICAL HISTORY: PNA COMPARISON: 08/20/2024 TECHNIQUE: Single view of the chest was obtained. FINDINGS: There is bilateral small patchy infiltrates most prominent in the right lung. The cardiac size and mediastinum are unremarkable. The bony structures are within normal limits. IMPRESSION: Infiltrates.
--- NOTE | 2024-08-22 14:14 | PN ---
[facility] PROGRESS NOTE Date Patient Seen: Aug 22, 2024 Time of Visit: 14:09 Supervising Physician: Dr. Brenton Valdovinos PROBLEM LIST: Acute hypoxemic respiratory failure, POA Bilateral pneumonia Sepsis, POA Leukocytosis, POA Acute kidney injury, POA Hyperlactatemia, POA Asthma INTERVAL HISTORY: Patient evaluated at bedside, currently on room air intermittently on 2 L nasal cannula, patient states he feels he is doing well, viral screening panel returned negative, HIV results were negative as well. Patient's status appears to be improved at this time, he passed his 6 minute walk and I myself saw him walking the halls without O2 and exerting himself without recourse. From a pulmonary standpoint this patient can be discharged to complete the remainder of his therapy with outpatient antibiotics. Continue to follow the patient while he is admitted. Plan Continue antibiotic therapy Continue supplemental O2 Continue Solu-Medrol IV, decreased tomorrow to b.i.d. Continue with nebulizer treatment Patient is food to discharge with outpatient antibiotics and steroid taper, disposition per primary. REVIEW OF SYSTEMS: 12 point ROS reviewed with patient. Pertinent positives mentioned above. Otherwise negative. PHYSICAL EXAM: GENERAL: alert, weak, awake oriented x 3 HEENT: EOMI, Sclera non icteric, moist mucosa NECK: Supple, no JVD, trachea midline LUNGS: Clear breath sounds bilaterally. No wheezes HEART: Regular rate and rhythm. Normal S1 and S2, without murmurs ABD: Abdomen soft, nontender. Bowel sounds present EXT: No clubbing cyanosis or edema NEURO: Alert and oriented to person, follows commands Vital Signs (last 8hr) Date Time Temp Pulse Resp B/P (MAP) Pulse Ox O2 Delivery O2 Flow Rate FiO2 08/22/24 12:00 98.1 85 19 132/65 93 Room Air 08/22/24 11:48 97 18 21 08/22/24 11:40 74 18 08/22/24 11:40 74 18 N/A Room Air 21 08/22/24 08:00 97.5 63 19 121/51 93 Nasal Cannula 2.0 08/22/24 07:50 Nasal Cannula* 3 32 08/22/24 06:59 75 18 08/22/24 06:58 75 18 N/A Room Air 21 LABS: Hematology Labs: Test 08/21/24 04:31 Range/Units White Blood Count 17.6 H 4.8-10.8 K/uL Red Blood Count 4.32 L 4.50-6.20 MIL/uL Hemoglobin 12.1 L 14.0-18.0 g/dL Hematocrit 36.0 L 42-54 % Mean Corpuscular Volume 83.3 79-99 fL Mean Corpuscular Hemoglobin 28.0 27.0-33.0 pg Mean Corpuscular Hemoglobin Concent 33.6 32.0-36.0 g/dL Red Cell Distribution Width 12.5 11.0-15.5 % Platelet Count 179 130-400 K/uL Mean Platelet Volume 10.7 H 7.5-10.5 fL Nucleated Red Blood Cells 0.0 0.0-0.19 % Chemistry Labs: Test 08/21/24 04:31 Range/Units Sodium Level 143 136-145 mmol/L Potassium Level 3.9 3.5-5.1 mmol/L Chloride Level 108 101-111 mmol/L Carbon Dioxide Level 26 21-32 mmol/L Blood Urea Nitrogen 21 H 7-18 mg/dL Creatinine 1.2 0.5-1.3 mg/dL Glomerular Filtration Rate Calc 83 >90 mL/min Random Glucose 163 H 70-105 mg/dL Total Calcium 8.6 8.5-10.1 mg/dL Magnesium Level 2.10 1.80-2.40 mg/dL Total Bilirubin 0.2 0.2-1.0 mg/dL Aspartate Amino Transf (AST/SGOT) 22 10-37 U/L Alanine Aminotransferase (ALT/SGPT) 39 12-78 U/L Alkaline Phosphatase 64 50-136 U/L Total Protein 6.1 6.0-8.3 g/dL Albumin 2.9 L 3.5-5.0 g/dL DIAGNOSTICS / RADIOLOGY RESULTS: [ ] PLAN NEURO: Minimize central acting medications as possible. Maintain fall precautions, adequate lighting during the day PULMONARY: Supplemental 02 as needed. Maintain aspiration precautions at all times CARDIOVASCULAR: Follow hemodynamics. Vital signs per facility protocol GI & NUTRITION: Continue with nutritional support. Continue stool softeners and laxatives as needed. KIDNEYS & ELECTROLYTES: Strict monitoring of intake, output and overall fluid balance. Avoid nephrotoxic medications to the extent possible. Medications to be dosed according to renal function. Monitor electrolytes and replace as needed ENDOCRINE: Maintain blood glucose between 100-180 at all times. Hypoglycemia protocol in place INFECTIOUS DISEASE: Trend temperature, WBC and procalcitonin level Follow cultures, deescalate antibiotics as soon as possible. Panculture if new onset fever ONCOLOGY/HEMATOLOGY/COAGULATION: Monitor for s/s of bleeding Monitor hemoglobin, coagulation studies as needed SKIN: Pressure ulcer prevention per facility protocol Specialty mattress ORTHO/REHAB: Continue PT/OT Prophylaxis: Continue GI and DVT prophylaxis Code Status: Full Resuscitation Disposition: TBD Other: Total patient care time exceeds 35 minutes excluding all procedures. BIBIANA PARK Aug 22, 2024 14:14
[2024-08-22] MEDS: acetaMINOPHEN 325 MG TAB PO PRN (15:21)
[2024-08-23 03:45] VITALS: BP 135/65; PULSE 53; RESP 20; TEMP 97.5
[2024-08-23 06:18] LABS: MEAN CORPUSCULAR HEMOGLOBIN 28.3 pg (27.0-33.0); MEAN CORPUSCULAR HGB CONC 33.3 g/dL (32.0-36.0); MEAN CORPUSCULAR VOLUME 84.9 fL (79-99); RED BLOOD CELL COUNT(AUTO) 4.24 MIL/uL (4.50-6.20); RED CELL DISTRIBUTION WIDTH 12.8 % (11.0-15.5); WHITE BLOOD COUNT (AUTO) 16.5 K/uL (4.8-10.8)
[2024-08-23 06:25] VITALS: PULSE 68; RESP 18
[2024-08-23 06:28] VITALS: PULSE 68; RESP 18; O2SAT 88
[2024-08-23 06:29] VITALS: PULSE 66; RESP 18; O2SAT 94
[2024-08-23 06:36] LABS: ALBUMIN 2.8 g/dL (3.5-5.0); BILIRUBIN,TOTAL 0.3 mg/dL (0.2-1.0); CREATININE 1.2 mg/dL (0.5-1.3); MAGNESIUM 2.2 mg/dL (1.80-2.40); POTASSIUM 3.9 mmol/L (3.5-5.1)
[2024-08-23 08:00] VITALS: BP 131/69; PULSE 62; RESP 19; TEMP 97.5
[2024-08-23] MEDS ORDERED: DOXY100C61 PO (09:57)
[2024-08-23] MEDS ORDERED: AMOX1TAB16 PO (09:57)
[2024-08-23] MEDS ORDERED: METH4TAB PO (09:57)
--- NOTE | 2024-08-23 10:00 | DS ---
Discharge Summary Hospital Course Summary: The patient admitted to the hospital 08/19/2024 with the following history of the present illness: Mr. Watkins is a 29-year-old male that was seen and examined today on 08/19/2024. Patient is a good historian and personal health. Patient's Roxanna Watkins is at bedside. Patient reports that he came to the emergency department with a chief complaint of shortness of breath. Onset was today at 8:00 a.m.. Location is to lungs. Duration is constant. Character is described as, " difficulty catching my breath. "Symptoms were not alleviated with laying in bed all day. Symptoms are aggravated with physical activity. Patient reports associated chest pain. Today in the emergency department patient arrived with a temperature of 101.7, heart rate 109, lactic acid elevated, and leukocytosis meeting clinical sepsis criteria. Labs showed WBCs 14.5, creatinine 1.7, lactic acid 2.5, ABG showed PO2 57.4, influenza screen was negative, COVID screen was negative, strep screen was negative, chest x-ray is pending radiology report however my initial impression is there was bilateral infiltrates. Emergency room physician recommended patient be admitted with a diagnosis of acute hypoxemic respiratory failure. 08/20/24 Patient is seen and examined, awake, comfortably bed, admits cough productive off yellow phlegm. BP 114/65, afebrile, saturating 94% 2 L via nasal cannula, CBC with a hemoglobin 13.6, hematocrit 39.6, white blood cell count of 14.7, patient on Zosyn IV pharmacy to dose. Chest x-ray showing bilateral patchy infiltrates. Serology test negative for influenza A and B, SARS antigen and group A strep. We will order CT chest without contrast. We will request Pulmonary consultation. Discussed with the patient, all questions answered. 08/21/24 patient is seen and examined, comfortable, no acute events overnight, admits to less cough compared to time of admission, no chest pain, BP 122/51, afebrile, saturating 96% on 2 L nasal cannula. CBC showing WBC of 17.6, hemoglobin 12.1, follow 36.0, platelet count of 179. CMP is unremarkable. Toxicology screen negative. ABG today pH seven point, pCO2 30, PO2 49.5. CT chest without contrast showing multifocal pneumoniae in the base of the right upper lobe and less pronounced if within in the base of the left upper lobe, severe hepatic steatosis. Patient getting IV antibiotics during my visit, pulmonary input noted and appreciated, continue bronchodilators, continue IV steroids, continue antibiotics. 08/22/24 patient is seen and examined, awake, alert and oriented x3, following commands, admits less shortness a breath, less cough, no chest pain. BP 121/51, afebrile, saturating 92-93% 2 L via nasal cannula, WBC today 17.6, hemoglobin 12.1, hematocrit 26.0, CMP is unremarkable. HIV test done yesterday, nonreactive (discussed with the patient), serology test to include influenza type A and B, SARS antigen and group a strep repeated, negative. We will continue the patient on broad-spectrum IV antibiotics. We will continue to follow Pulmonary input and recommendation. Anticipate discharge home in the ne xt 24 hours. Today the patient is hemodynamically stable, alert oriented x3, saturating normal on room air, he passed 6 minute walk. He denied chest pain, shortness shortness for breath, no cough, no nausea, no vomiting, no abdominal discomfort. Plan is for the patient to be discharged home today. Groover Operator(s): Pulmonary Assessment/Plan: Final diagnosis Acute hypoxemic respiratory failure, POA Sepsis, POA Leukocytosis, POA Acute kidney injury, POA Hyperlactatemia, POA Asthma Discharge Instructions: The patient to follow up with PCP as an outpatient as well as pulmonary physician as an outpatient and to return to the hospital if his condition changes, patient agreed with the plan and understood the information provided. Home Medications: Reported Medications Omeprazole (Omeprazole) 20 Mg Capsule.dr, 1 CAP PO DAILY for 30 Days, #30 CAP 0 Refills 08/21/24 Montelukast Sodium (Montelukast Sodium) 10 Mg Tablet, 1 TAB PO DAILY 08/21/24 Fluticasone Propion/Salmeterol (Wixela 250-50 Inhub) 250 Mcg-50 Mcg/Dose Blst. w.dev, 1 PUFF PO DAILY 08/21/24 Time spent arranging discharge: 31-60 minutes BELL SMITH MD Aug 23, 2024 10:00
[2024-08-23] MEDS ORDERED: IPRA3AMP24 IH (10:44)
[2024-08-24 23:07] LABS: MYCOPLASMA AB IGM <770 U/mL (0-769)
== END 2024-08-23 11:10 | disposition home or self-care (01) | DRG 871 ==
LOC: EDH 17:08 → EDHIP 21:05 → 4DH 08-20 12:45
PROVIDERS: ADMIT Internal Medicine; ATTEND Internal Medicine
PROC: 5A09357 Assistance with Respiratory Ventilation, Less than 24 Consecutive Hours, Continuous Positive Airway Pressure (ICD-10-PCS; 2024-08-19)
PROC: 5A09357 Assistance with Respiratory Ventilation, Less than 24 Consecutive Hours, Continuous Positive Airway Pressure (ICD-10-PCS; principal; 2024-08-20)
DX: A41.9 Sepsis, unspecified organism (principal); J15.9 Unspecified bacterial pneumonia; J96.01 Acute respiratory failure with hypoxia; E87.20 Acidosis, unspecified; N17.9 Acute kidney failure, unspecified; K21.9 Gastro-esophageal reflux disease without esophagitis; Z20.822 Contact with and (suspected) exposure to COVID-19; J45.909 Unspecified asthma, uncomplicated; K76.0 Fatty (change of) liver, not elsewhere classified; Z79.899 Other long term (current) drug therapy
CPT/HCPCS: 36415; 36600; 71045; 71250; 80048; 80053; 80305; 81001; 82435; 82550; 82570; 82803; 82947; 83605; 83735; 83880; 83935; 84100; 84132; 84145; 84295; 84300; 84484; 85018; 85025; 85027; 86701; 86738; 87040; 87071; 87205; 87390; 87426; 87449; 87804; 87880; 93005; 94640; 94660; 94664; 94760; 96365; 96368; 96375; 99285; G0378; J0456; J0696; J1650; J2543; J2919; J3490; J7030